=== PATIENT | female | born 1990 | race Caucasian/White ===

== ENCOUNTER 2016-12-17 08:53 | Emergency (ER) | payer MEDICAID ==
[2010-01-27 05:36] VITALS: BMI 36.8
[2016-12-17 10:12] LABS: APPEARANCE SLT CLOUDY (CLEAR); BILIRUBIN NEGATIVE (NEGATIVE); COLOR YELLOW (YELLOW); GLUCOSE NEGATIVE (NEGATIVE); KETONE NEGATIVE (NEGATIVE); LEUKOCYTE ESTERASE NEGATIVE (NEGATIVE); NITRITE POSITIVE (NEGATIVE); PROTEIN NEGATIVE (NEGATIVE); SPECIFIC GRAVITY 1.015 (1.005-1.020); UROBILINOGEN NORMAL (NORMAL)
[2016-12-17 10:13] LABS: BACTERIA MANY /hpf (NONE SEEN); EPITHELIAL CELLS 0-5 /hpf (0-5); RED CELLS - URINE NONE SEEN /hpf (0-5); WHITE CELLS - URINE 0-5 /hpf (0-5)
[2016-12-17 11:35] LABS: BASOPHILS 0.1 % (0-2); EOSINOPHILS 0.7 % (0-7); HEMATOCRIT 36.1 % (36.0-48.0); HEMOGLOBIN 12.3 g/dL (12-16); IMMATURE GRANULOCYTES 0.3 % (0-5); LYMPHOCYTES 17.3 % (15-50); MCH 28.9 pg (26.0-34.0); MCHC 34.1 g/dL (31.0-37.0); MCV 84.7 fL (80.0-100.0); MEAN PLATELET VOLUME 10.2 fL (7.4-10.4); MONOCYTES 7.1 % (2-11); NEUTROPHILS 74.5 % (40-80); PLATELET COUNT 218 10x3/uL (130-400); RBC 4.26 10x6/uL (4.00-5.40); RDW 13.9 % (11.5-14.5); WBC 10.4 10x3/uL (4.8-10.8)
[2016-12-17 12:01] LABS: ALBUMIN 3.3 g/dL (3.4-5.0); ALKALINE PHOSPHATASE 35 U/L (46-116); ALT (SGPT) 19 U/L (10-68); BILIRUBIN - TOTAL 0.26 mg/dL (0.2-1.3); CALC OSMOLALITY 273 mosm/kg (275-300); CALCIUM 9.1 mg/dL (8.5-10.1); CARBON DIOXIDE 25.5 mmol/L (21.0-32.0); CHLORIDE - SERUM 105 mmol/L (98-107); CREATININE - SERUM 0.7 mg/dL (0.6-1.3); GLUCOSE 81 mg/dL (74-106); POTASSIUM - SERUM 3.9 mmol/L (3.5-5.1); PROTEIN - SERUM 6.9 g/dL (6.4-8.2); SODIUM 138 mmol/L (136-145); UREA NITROGEN 10 mg/dL (7-18); eGFR NON AFRICAN AMERICAN > 90 mL/min (90-120)
[2016-12-17 12:27] LABS: HCG - QUANTITATIVE (MATERNAL) 210486 mIU/mL
== END 2016-12-17 16:01 | disposition home or self-care (01) ==
LOC: D.ER 08:53
PROVIDERS: Emergency Medicine; Physician Assistant
DX: O26.891 Other specified pregnancy related conditions, first trimester (principal); Z3A.08 8 weeks gestation of pregnancy; R10.9 Unspecified abdominal pain; R10.32 Left lower quadrant pain; N39.0 Urinary tract infection, site not specified

== ENCOUNTER → 2017-05-29 14:13 | Outpatient (CLI) | payer MEDICAID ==
[2010-01-27 05:36] VITALS: BMI 36.8
[~2017-05-29 14:13] MED LIST: BUSPAR10 MG PO; CYCLOBENZAPRINE5 MG PO; HYDROCODONE-APA1 TAB PO; IBUPROFEN600 MG PO; PRENATAL COMPLE1 TAB PO
[2017-05-29 14:28] LABS: APPEARANCE CLEAR (CLEAR); COLOR YELLOW (YELLOW); GLUCOSE NEGATIVE (NEGATIVE); KETONE NEGATIVE (NEGATIVE); NITRITE NEGATIVE (NEGATIVE); PROTEIN NEGATIVE (NEGATIVE); SPECIFIC GRAVITY 1.015 (1.005-1.020); UROBILINOGEN NORMAL (NORMAL)
[2017-05-29 14:29] LABS: BILIRUBIN NEGATIVE (NEGATIVE)
[2017-05-29 14:31] LABS: WHITE CELLS - URINE 0-5 /hpf (0-5)
[2017-05-29 14:32] LABS: BACTERIA MODERATE /hpf (NONE SEEN); RED CELLS - URINE OCC /hpf (0-5)
[2017-07-22 06:09] VITALS: BMI 37.9
== END | disposition home or self-care (01) ==
LOC: D.LDO 14:13
PROVIDERS: Obstetrics & Gynecology
DX: O26.893 Other specified pregnancy related conditions, third trimester (principal); Z3A.36 36 weeks gestation of pregnancy; R42 Dizziness and giddiness; R11.0 Nausea

== ENCOUNTER → 2017-06-23 12:25 | Outpatient (CLI) | payer MEDICAID ==
[2010-01-27 05:36] VITALS: BMI 36.8
[2017-07-22 06:09] VITALS: BMI 37.9
== END | disposition home or self-care (01) ==
LOC: D.LDO 12:25
DX: O26.899 Other specified pregnancy related conditions, unspecified trimester (principal)

== ENCOUNTER → 2017-07-06 11:50 | Outpatient (CLI) | payer MEDICAID ==
[2010-01-27 05:36] VITALS: BMI 36.8
[2017-07-06 12:47] LABS: APPEARANCE CLEAR (CLEAR); BACTERIA FEW /hpf (NONE SEEN); BILIRUBIN NEGATIVE (NEGATIVE); COLOR YELLOW (YELLOW); EPITHELIAL CELLS 0-5 /hpf (0-5); GLUCOSE NEGATIVE (NEGATIVE); KETONE NEGATIVE (NEGATIVE); NITRITE NEGATIVE (NEGATIVE); PROTEIN NEGATIVE (NEGATIVE); RED CELLS - URINE RARE /hpf (0-5); UROBILINOGEN NORMAL (NORMAL); WHITE CELLS - URINE OCC /hpf (0-5)
[2017-07-22 06:09] VITALS: BMI 37.9
== END | disposition home or self-care (01) ==
LOC: D.LDO 11:50
PROVIDERS: Obstetrics & Gynecology
DX: O26.893 Other specified pregnancy related conditions, third trimester (principal); Z3A.36 36 weeks gestation of pregnancy; R10.9 Unspecified abdominal pain

== ENCOUNTER 2017-07-22 05:39 | Inpatient (IN) | payer MEDICAID ==
[~2017-07-22] VITALS: Ht 157.5 cm; Wt 93.9 kg
[~2017-07-22 05:39] MED LIST changes: -HYDROCODONE-APA1 TAB PO; -IBUPROFEN600 MG PO
[2017-07-22] MEDS ORDERED: BUSPAR10 MG PO (06:07)
[2017-07-22] MEDS ORDERED: PRENATAL COMPLE1 TAB PO (06:07)
[2017-07-22] MEDS ORDERED: CYCLOBENZAPRINE5 MG PO (06:08)
[2017-07-22 06:09] VITALS: BP 114/71; Ht 157.5 cm; Wt 93.9 kg
[2017-07-22 07:01] LABS: APPEARANCE HAZY (CLEAR); BILIRUBIN NEGATIVE (NEGATIVE); COLOR YELLOW (YELLOW); GLUCOSE NEGATIVE (NEGATIVE); KETONE NEGATIVE (NEGATIVE); NITRITE NEGATIVE (NEGATIVE); PROTEIN NEGATIVE (NEGATIVE); SPECIFIC GRAVITY 1.015 (1.005-1.020); UROBILINOGEN NORMAL (NORMAL)
[2017-07-22 07:03] LABS: HEMATOCRIT 35.6 % (36.0-48.0); HEMOGLOBIN 11.8 g/dL (12-16); MCH 26.7 pg (26.0-34.0); MCHC 33.1 g/dL (31.0-37.0); MCV 80.5 fL (80.0-100.0); MEAN PLATELET VOLUME 10.8 fL (7.4-10.4); RBC 4.42 10x6/uL (4.00-5.40); RDW 14.4 % (11.5-14.5); WBC 10.8 10x3/uL (4.8-10.8)
[2017-07-22 07:21] LABS: UDS - AMPHET NEGATIVE QUAL (NEGATIVE); UDS - BARB NEGATIVE QUAL (NEGATIVE); UDS - BENZO NEGATIVE QUAL (NEGATIVE); UDS - COCAINE NEGATIVE QUAL (NEGATIVE); UDS - OPIATE NEGATIVE QUAL (NEGATIVE); UDS - PCP NEGATIVE QUAL (NEGATIVE); UDS - THC NEGATIVE QUAL (NEGATIVE)
--- NOTE | 2017-07-22 08:03 | NUR ---
BABY BORN AT 0755, PLACENTA AT 0756.
--- NOTE | 2017-07-22 09:06 | NUR ---
FUNDUS IS FIRM, MIDLINE AT THE UMBILICUS. PERIPAD IN PLACE. SCANT LOCIA
[2017-07-22 09:27] VITALS: BP 103/60
--- NOTE | 2017-07-22 09:30 | NUR ---
Received pt to room by bed from recovery with bedside report given, VSS. Pt awake and alert, rates pain at 2/10 at this time. Fundus firm upon massage at u/1 with moderate lochia noted without clots. Jenny pad changed. SCD's on per order. IV to left hand infusing via pump per orders. Bikini incision covered with large white bandage that is clean and dry. Sherman cath to bedside drain with 200ml to collection canister. Infant brought to room via crib for . Dilaudid beer cooler started and pt voices her understanding of use. side rails up x 2 with call light in reach and spouse at bedside.
--- NOTE | 2017-07-22 09:50 | NUR ---
fundus firm upon massage at u/1, light bleeding noted without clots. Bonding with infant. small cup of ice and large lemon rosebud soda per pt request.
--- NOTE | 2017-07-22 10:15 | NUR ---
fundus firm with massage at u/1, light to moderate lochia noted, david pads changed. denies needs at this time. call light in reach.
--- NOTE | 2017-07-22 11:30 | NUR ---
tilted to right side per self, fundus firm at u/1. large lemon rampart soda and small cup of ice per request. bonding well with infant. rates pain at 3/10 and denies needs
--- NOTE | 2017-07-22 13:00 | NUR ---
Called to room, pt complaining of increase cramping, rates at 7/10. Pt repositioned to left side and immediate 300ml urine noted to cardoso, fundus firm at u/1 with no clots noted. Orders verified and Tordal given per emar. Pt resting at this time, side rails up x 2 and call light with reach.
--- NOTE | 2017-07-22 14:00 | NUR ---
states that cramping is much better and rates at 2/10. large cup of ice per request. Under pad and towels changed and cardoso care given. Pt able to move self up in bed with little assistance. cardoso with 300ml to collection canister noted. side rails up x 2 with call light in reach. denies any other needs at this time.
[2017-07-22 15:05] LABS: BASOPHILS 0.1 % (0-2); EOSINOPHILS 0.1 % (0-7); HEMATOCRIT 31.8 % (36.0-48.0); HEMOGLOBIN 10.4 g/dL (12-16); IMMATURE GRANULOCYTES 0.6 % (0-5); LYMPHOCYTES 8.2 % (15-50); MCH 26.8 pg (26.0-34.0); MCHC 32.7 g/dL (31.0-37.0); MEAN PLATELET VOLUME 9.6 fL (7.4-10.4); MONOCYTES 6.2 % (2-11); NEUTROPHILS 84.8 % (40-80); RBC 3.88 10x6/uL (4.00-5.40); RDW 14.3 % (11.5-14.5)
[2017-07-22 15:07] LABS: PLATELET COUNT 212 10x3/uL (130-400)
[2017-07-22 16:30] VITALS: BP 120/68
--- NOTE | 2017-07-22 16:45 | NUR ---
Fundus firm at u/1 with light bleeding noted to david pad. Pads changed and pt repositioned to her back. rates pain at 3/10. denies any needs at this time.side rails up x 2 with call light in reach.
--- NOTE | 2017-07-22 18:58 | NUR ---
fundus firm at u/1 with light bleeding. david pad changed. assisted pt in moving up in bed. iv pump cleared with total 1152ml and cardoso emptied with 1100output. Questions asked diet and states understanding that no new orders had been received. NO other needs at this time. Infant in crib at bedside. side rails up x 2 with call light in reach.
--- NOTE | 2017-07-22 19:12 | NUR ---
REPORT REC'D FROM Alana BETANCOURT RN. PT REC'D IN HIGH FOWLERS POSITION CONVERSING AND LAUGHING WITH VISITORS. DENIES NEEDS AT THIS TIME. BED IN LOW POSITION WITH UPPER SIDE RAILS RAISED X2. SCD'S ON BILATERAL CALFS. CL, METAL FILER BUTTON, AND PHONE WITHIN REACH. WILL CONT TO MONITOR AND ASSIST PRN.
--- NOTE | 2017-07-22 20:02 | NUR ---
PT CONTINUES TO CONVERSE WITH VISITORS AT [facility]. RATES PAIN 3-4/10, TORADOL OFFERED PER ORDER. PT DENIES NEED AT THIS TIME. STATES THAT SHE CAN PUSH DELIVERY SALES WORKER BUTTON, BUT DOESN'T LIKE TO USE BUTTON D/T DELIVERY SALES WORKER MAKING HER DROWSY. PT STATES THAT VISITORS WILL BE LEAVING AND REQUESTS FOR ASSESSMENT TO BE DONE AT THAT TIME. BED IN LOW POSITION, UPPER SIDE RAILS RAISED X2. CL, PHONE, AND DELIVERY SALES WORKER BUTTON WITHIN PT REACH. WILL CONT TO MONITOR AND ASSIST PRN.
--- NOTE | 2017-07-22 20:26 | NUR ---
PT CALLS VIA CL AND NOTIFIES RN THAT VISITIORS ARE GONE. REQUESTS TORADOL AT THIS TIME, PAIN 12/23, STATES THAT TORADOL WORKS BETTER FOR HER AND DOESN'T MAKE HER FEEL "LOOPY AND OUT OF IT." TORADOL GIVEN PER REQUEST SIVP . PT MOVING SELF UP IN BED AND TURNING FROM SIDE TO SIDE INDEPENDENTLY WITH RN AT BEDSIDE.
[2017-07-22 20:32] VITALS: BP 108/66
--- NOTE | 2017-07-22 20:32 | NUR ---
SHIFT ASSESSMENT COMPLETED FOLLOWING GIVING TORADOL SIVP. VSS. FUNDUS FIRM, U2 WITH SMALL AMT RUBRA LOCHIA, NO CLOTS. FUNDUS MIDLINE. SCOTT DRAINING CLEAR YELLOW URINE TO BEDSIDE DRAINAGE BAG. 50 CC NOTED IN UROMETER. RESPIRATION CLEAR AND EQUAL BILATERALLY, BOWEL SOUNDS PRESENT AND ACTIVE X4. PT STATES THAT SHE HAS PASSED "A LITTLE" FLATUS AND IS BELCHING. BOARDED GAUZE PRESENT TO LOW TRANSVERSE ABD INCISION. DRIED DRAINAGE NOTED TO DRSG AND MARKED. SCD'S REMOVED, SKIN WDL, SCD'S REPLACED. NO EDEMA NOTED TO BLE AT THIS TIME. PIV INFUSING TO LEFT HAND, NO S/S OF INFILTRATION NOTED. PT USED INCENTIVE SPIROMETER WITH RN AT BEDSIDE, PT USE PROPERLY, COUGH AND DEEP BREATHING ALSO DONE. PT POSITIONED SELF TO LEFT SIDE, RN ASSISTED WITH PLACING PILLOW BEHIND BACK FOR COMFORT AND SUPPORT. SCOTT CARE DONE WITH SCOTT WIPES, PERINUM CLEANSED. TOWELS AND CHUX CHANGED, CLEAN PERIPAD APPLIED. PT REQUEST JELLO AND ICE, PROVIDED PER REQUEST. LINEN AND PILLOWS PROVIDED FOR S/O. DENIES ADDITIONAL NEEDS AT THIS TIME. S/O AT BEDSIDE, SUPPORTIVE AND ATTENTIVE TO PT NEEDS. BED IN LOW POSITION WITH UPPER SIDE RAILS RAISED X2. CL, PHONE, AND PUBLIC RELATIONS SUPERVISOR BUTTON WITHIN REACH. WILL CONT TO MONITOR AND ASSIST PRN.
--- NOTE | 2017-07-22 20:56 | NUR ---
PAIN REASSESSMENT COMPLETE. PAIN 08/25. PT DENIES NEEDS AT THIS TIME. WILL CONTINUE TO MONITOR AND ASSIST PRN.
--- NOTE | 2017-07-22 21:36 | NUR ---
RN TO BEDSIDE FOR ROUNDS. PT INFANT AT THIS TIME. DENIES NEEDS. S/O REMAINS AT BEDSIDE. SCOTT REPOSITIONED TO PROMOTE DRAINAGE. BED IN LOW POSITION WITH UPPER SIDE RAILS RAISED X2. CL, PHONE, AND AIRCONDITIONING DRAFTING OFFICER BUTTON WITHIN REACH. WILL CONT TO MONITOR AND ASSIST PRN.
--- NOTE | 2017-07-22 22:13 | NUR ---
RN TO BEDSIDE. PT REPOSITIONING SELF TO BACK AND HIGH FOWLERS POSITIONS. INCENTIVE SPIROMETER USED BY PT INDEPENDENTLY. PAIN 2/10. DENIES NEEDS AT THIS TIME. WILL CONT TO MONITOR AND ASSIST PRN.
--- NOTE | 2017-07-22 23:33 | NUR ---
called to room by patient, states that she turned in the bed and felt something wet between her legs. states that she thinks her catheter came out. catheter remains in place at this time. pericare done and clean pad placed. pt denies further needs. call constantino and tray table in reach.
--- NOTE | 2017-07-22 23:40 | NUR ---
PATIENT ASSISTED WITH AT THIS TIME. PROPER LATCH NOTED,
[2017-07-23 00:17] VITALS: BP 105/56
--- NOTE | 2017-07-23 00:17 | NUR ---
PT CALLS RN VIA CL. STATES THAT SHE COMPLETED . REQUESTS BE TAKEN TO NBN AND REQUESTS TO SIT UP ON EDGE OF BED. BACK TO NBN. V/S TAKEN AND STABLE. PT POSITIONED TO SITTING ON EDGE OF BED WITH MINIMAL ASSISTANCE. STATES THAT SHE FEELS MUCH BETTER BEING ABLE TO SIT UP, STATES THAT HELPED MY BACK AND SHOULDERS A LOT. PT ASSISTED TO CHANGE INTO BRA. PT GIVEN WARM WET WASH CLOTH AND CLEANSED FACE. RN ASSISTED TO WASH BACK AND BLE. 325 MLS CLEAR YELLOW URINE EMPTIED FROM UROMETER. PT INDEPENDENTLY POSITIONED SELF BACK TO BED AND USED INCENTIVE SPIROMETER X10. COUGHING AND DEEP BREATHING ALSO DONE. FUNDUS FIRM, U2 AND MIDLINE, SMALL AMT RUBRA LOCHIA TO PERIPAD, NO CLOTS NOTED. PERINUM CLEANSED. CHUX CHANGED, CLEAN PERIPADS APPLIED. PT INDEPENDENTLY POSITIONED SELF TO LEFT SIDE LYING POSITION. PAIN 6/10 FOLLOWING ACTIVITY. CLINICAL DATA ASSOCIATE USED BY PT AT THIS TIME. DRSG REMAINS INTACT, NO NEW DRAINAGE NOTED FROM PREVIOUW DRIED DRAINAGE AT BEGINNING OF SHIFT. ICE AND JELLO GIVEN PER REQUEST, DENIES ADDITIONAL NEEDS. BED IN LOW POSITION WITH UPPER SIDE RAILS RAISED X2. CL, PHONE, AND CLINICAL DATA ASSOCIATE BUTTON WITHIN PT REACH. WILL CONT TO MONITOR AND ASSIST PRN.
--- NOTE | 2017-07-23 00:30 | NUR ---
RN TO BEDSIDE PT RESTING QUEITLY AND WATCHING TV. REPORTS THAT SINCE USING COMPENSATION AND BENEFITS MANAGER PAIN IS NOW 2/10 AND THAT SHE IS GOING TO KEEP RESTING. WILL CONT TO MONITOR AND ASSIST PRN.
--- NOTE | 2017-07-23 02:03 | NUR ---
RN TO BEDSIDE FOR ROUNDS. PT IN SEMI-FOWLERS POSITION, LAYING ON RIGHT SIDE RESTING WITH EYES CLOSED. RESPIRATIONS REGULAR AND UNLABORED, NO S/S OF DISTRESS NOTED. S/O RESTING ON COUCH AT BEDSIDE. BED IN LOW POSITION WITH UPPER SIDE RAILS RAISED X2. CL, PHONE, AND BREAD ROOM HAND BUTTON WITHIN REACH. INFANT IN NBN AT THIS TIME. WILL CONT TO MONITOR AND ASSIST PRN.
[2017-07-23 04:14] VITALS: BP 105/69
--- NOTE | 2017-07-23 04:14 | NUR ---
RN TO BEDSIDE FOR ROUNDS. PT JUST COMPLETED . VSS. FUNDUS FIRM, MIDLINE U2 WITH SCANT AMT RUBRA LOCHIA TO PERIPAD. NO CLOTS PRESENT. 325 MLS EMPTIED FROM SCOTT. PERICARE DONE, CHUX AND PERIPADS CHANGED. INCENTIVE SPIROMETER USED. PT POSITIONED INDEPENDENTLY FROM RIGHT SIDE TO LEFT SIDE. NEW ICE PACK GIVEN. CRANBERRY JUICE AND ICE WATER GIVEN PER REQUEST. PAIN 5/10, ABD CRAMPING, TORADOL GIVEN PER REQUEST AND ORDER. DENIES ADDITIONAL NEEDS AT THIS TIME. BED IN LOW POSITION WITH UPPER SIDE RAILS RAISED X2. CL, PHONE, AND DATA ENTRY TECHNICIAN BUTTON WITHIN REACH. WILL CONT TO MONITOR AND ASSIST PRN.
--- NOTE | 2017-07-23 04:45 | NUR ---
PAIN REASSESSMENT COMPLETED. PT CONTINUES TO LAY ON RIGHT SIDE. RESTING QUIETLY WITH EYES CLOSED. RESPIRATIONS REGULAR AND UNLABORED, NO S/S OF DISTRESS NOTED. S/O REMAIN AT BEDSIDE RESTING ON COUCH AT BEDSIDE. BED IN LOW POSITION WITH UPPER SIDE RAILS RAISED X2. CL AND PHONE WITHIN REACH. WILL CONT TO MONITOR AND ASSIST PRN.
[2017-07-23 06:15] LABS: RAPID PLASMA REAGIN Non Reactive (Non Reactive)
[2017-07-23 06:21] LABS: BASOPHILS 0.2 % (0-2); EOSINOPHILS 0.7 % (0-7); HEMATOCRIT 29.6 % (36.0-48.0); HEMOGLOBIN 9.6 g/dL (12-16); IMMATURE GRANULOCYTES 0.4 % (0-5); LYMPHOCYTES 13.7 % (15-50); MCH 26.5 pg (26.0-34.0); MCHC 32.4 g/dL (31.0-37.0); MCV 81.8 fL (80.0-100.0); MEAN PLATELET VOLUME 9.3 fL (7.4-10.4); MONOCYTES 5.4 % (2-11); NEUTROPHILS 79.6 % (40-80); PLATELET COUNT 183 10x3/uL (130-400); RBC 3.62 10x6/uL (4.00-5.40); RDW 14.3 % (11.5-14.5); WBC 11.3 10x3/uL (4.8-10.8)
[2017-07-23 09:45] VITALS: BP 109/63
--- NOTE | 2017-07-23 10:00 | NUR ---
DR CORMIER CALLED AND VERIFIED THAT IV COULD BE SALINE LOCKED AND TYLER D/C. EXPLAINED THAT PT IS ASKING TO GET UP OUT OF BED. NEW ORDERS RECEIVED.
--- NOTE | 2017-07-23 10:15 | NUR ---
Plan of care gone over with pt and she denies any questions. IV saline locked. Sherman cath removed intact with 600ml wasted. Pt able to move self to side of bed and amb to bathroom. Voids 200ml without complaint. david care per self with assistance provided with pads/panties. Bed linen changed at this time. Rates pain at 2/10 and understands that pain med is ordered but not scheduled. Side rails up x 2 with call light in reach.
--- NOTE | 2017-07-23 12:18 | NUR ---
large cup of ice plus dr natarajan per pt request. Given Thank You box at this time. pt denies need for pain med and states she has gotten up to void again. 400ml noted to collection hat in bathroom. denies any other needs at this time.
--- NOTE | 2017-07-23 13:06 | NUR ---
CALLED TO ROOM, ASSISTANCE PROVIDE GETTING OUT OF BED TO BATHROOM. VOIDS 300ML WITHOUT COMPLAINT. MEDS GIVEN CHARTED ON EMAR PER PT COMPLAINT OF PAIN THAT SHE RATES AT 8/10. SPOUSE AND AT BEDSIDE. CALL LIGHT IN REACH AND LIGHTS TURNED OUT PER REQUEST.
--- NOTE | 2017-07-23 15:00 | NUR ---
Called to room, assistance provided to get out of bed. Amb per self to bathroom. Request to take a shower now, shower seat placed in shower and supplies moved to be within easy reach for patient. States understanding of emergency call light and spouse states he will be in room also. Bed linens straightened and pink pad changed. Questions answered about how to wash incision site, pt to call when she is finished so that incision care can be shown.
--- NOTE | 2017-07-23 15:45 | NUR ---
PT PRESSES CALL LIGHT. THIS RN TO ROOM. PT IN SHOWER, REQUESTING HELP WITH DRESSING FROM SHOWER. PT ASSISTED TO DRY AND DRESS. PT AMBULATES TO BED WITHOUT ASSIST. PT REQUESTING PIV REMOVED. LABS REVIEWED, PIV REMOVED NO LONGER INDICATED. IV CATH INTACT, PT TASHIA WELL. NO BLEEDING NOTED, BANDAID APPLIED TO SITE. PT DENIES FURTHER NEEDS AT THIS TIME. SRUx2, CL IN REACH.
[2017-07-23 16:30] VITALS: BP 114/70
--- NOTE | 2017-07-23 16:47 | NUR ---
visiting with friends/family, infant in room at this time. Rates her pain at 4/10 denies pain med at this time stating she will call when she is ready to take something.
--- NOTE | 2017-07-23 17:49 | NUR ---
PT CALLS OUT FOR PAIN MED, RATES PAIN AT 6/10 AT INCISION SITE. MEDS GIVEN CHARTED ON EMAR.
--- NOTE | 2017-07-23 18:45 | NUR ---
PAIN REASSESSMENT CHARTED ON EMAR. LARGE ICE WATER PER REQUEST. DENIES ANY OTHER NEEDS AT THIS TIME.
--- NOTE | 2017-07-23 19:06 | NUR ---
REPORT REC'D FROM Alana BETANCOURT RN. PT REC'D SITTING ON EGDE OF BED CONVERSING WITH VISITIORS. DENIES NEEDS CURRENTLY. REPORTS THAT PAIN IS 2-3/10, DENIES NEED FOR INTERVENTION. BED IN LOW POSITION WITH UPPER SIDE RAILS RAISED X2. CL AND PHONE WITHIN REACH. WILL CONT TO MONITOR AND ASSIST PRN.
--- NOTE | 2017-07-23 19:52 | NUR ---
RN BACK TO BEDSIDE. PT CONTINUING OT CONVERSE WITH VISITORS. DENIES NEEDS. INSTRUCTED TO NOTIFY RN WHEN VISITORS LEAVE FOR SHIFT ASSESSMENT TO BE COMPLETED. VERBALIZES UNDERSTANDING.
--- NOTE | 2017-07-23 20:13 | NUR ---
PT CALLS VIA CL, STATES THAT VISITORS ARE GONE. RN TO BEDSIDE. SHIFT ASSESSMENT COMPLETED. VSS. FUNDUS FIRM U3 AND MIDLINE, SMALL AMT RUBRA LOCHIA, NO CLOTS PRESENT. RESPIRATIONS CLEAR, EQUAL, REGULAR, AND UNLABORED. BOWEL SOUNDS PRESENT AND ACTIVE X4. PT STATES THAT SHE IS PASSING FLATUS AND VOIDING WITHOUT DIFFICULTY. LOWER TRANSVERSE ABD INCISION, WELL APPROXIMATED WITH ISSAC INTACT, NO DRAINAGE PRESENT. PERIPAD REPLACED BETWEEN ABD FOLD AND INCISION. STATES THAT SHE SHOWERED DURING PREVIOUS SHIFT, REFUSES LINEN CHANGE AT THIS TIME. S/O BONDING WITH AT THIS TIME. PT STATES THAT SHE HAS NOT AMBULATED OUTSIDE OF ROOM, ENCOURAGED TO AMBULATE IN [place] ON UNIT. EDUCATED ON S/S OF INFECTIONS/INCISION COMPLICATIONS, REINFORCED CARE OF INCISION FOR D/C, AND INSTRUCTED ON LIFTING RESTRICTIONS. VERBALIZES UNDERSTANDING ADN DENIES QUESTIONS. COUGHING AND DEEP BREATHING DONE BY PT, FOLLOWING COUGH PAIN 7/10, PT REQUESTS JUST MOTRIN AT THIS TIME. ICE WATER GIVEN. DENIES ADDITIONAL NEEDS. S/O AT BEDSIDE SUPPORTIVE AND ATTENTIVE TO PT AND INFANT NEEDS. BED IN LOW POSITION WITH UPPER SIDE RAILS RAISED X2. CL AND PHONE WITHIN REACH.
--- NOTE | 2017-07-23 20:25 | NUR ---
MOTRIN GIVEN PER REQUEST. DENIES ADDITIONAL NEEDS. WILL CONT TO MONITOR AND ASSIST PRN.
--- NOTE | 2017-07-23 21:00 | NUR ---
PAIN REASSESSMENT COMPLETED. PAIN 10/23, DENIES NEED FOR ADDITIONAL INTERVENTION AT THIS TIME. PT ASSISTED UP OOB TO VOID, REPORTS THAT EVEN WHEN SHE SPLINTS ABD STILL FEELS LIKE IT PULLS DOWN ON "EVERYTHING." DISCUSSED USE OF ABD BINDER, VERBALIZES AGREEMENT. T/O REC'D FROM DR. CORMIER FOR ABD BINDER. RN ASSISTED WITH PLACEMENT OF ABD BINDER AND INSTRUCTED PT ON USE. VERBALIZES UNDERSTANDING AND DENIES QUESTIONS. ENCOURAGED PT TO AMBULATE ON UNIT, VERBALIZES UNDERSTANDING AND STATES THAT SHE WILL AMBULATE WHEN GOES BACK TO NBN. WILL CONT TO MONITOR AND ASSIST PRN.
--- NOTE | 2017-07-23 21:27 | NUR ---
PT AMBULATES WITH S/O TO NURSES STATION. STEADY GAIT NOTED. PT REQUESTS ADDITIONAL PAIN MEDICATION. PAIN 6/10 DURING ACTIVITY. PT AMBULATES BACK TO ROOM WITH S/O.
--- NOTE | 2017-07-23 21:34 | NUR ---
NORCO GIVEN PER ORDER AND PT REQUEST. PAIN 01/23, "I'M JUST SORE AND STIFF, AND MY INCISION FEELS LIKE IT IS BURNING." ICE WATER GIVEN. PT POSITIONED INDEPENDENTLY IN BED. DENIES ADDITIONAL NEEDS AT THIS TIME. STATES THAT SHE IS GOING TO TRY TO REST. BED IN LOW POSITION WITH UPPER SIDE RAILS RAISED X2. CL AND PHONE WITHIN REACH. WILL CONT TO MONITOR AND ASSIST PRN.
--- NOTE | 2017-07-23 22:20 | NUR ---
PAIN REASSESSMENT COMPLETED. PT RESTING WITH EYES CLOSED, LAYING ON RIGHT SIDE. RESPIRATIONS REGULAR AND UNLABORED, NO S/S OF DISTRESS NOTED. S/O RESTING ON COUCH AT BEDSIDE. BED IN LOW POSITION WITH UPPER SIDE RAILS RAISED X2. CL AND PHONE WITHIN REACH. WILL CONT TO MONITOR AND ASSIST PRN.
--- NOTE | 2017-07-24 00:16 | NUR ---
RN TO BEDSIDE FOR ROUNDS. PT BREAST FEEDING INFANT AT THIS TIME. DENIES NEEDS. PAIN 2/10, ABD CRAMPING, DENIES NEED FOR INTERVENTION. PT STATES THAT SHE WILL CALL RN WHEN SHE COMPLETES FEEDING INFANT FOR V/S AND FUNDAL CHECK. BED IN LOW POSITION WITH UPPER SIDE RAILS RAISED X2. CL AND PHONE WITHIN REACH. WILL CONT TO MONITOR AND ASSIST PRN.
--- NOTE | 2017-07-24 00:54 | NUR ---
PT CALLS VIA CL. REPORTS THAT SHE IS DONE FEEDING . RN TO BEDSIDE. VSS. FUNDUS REMAINS FIRM, U3 AND MIDLINE, SMALL AMT RUBRA LOCHIA PRESENT, NO CLOTS, PT DENIES CLOTS WITH VOIDS. ICE WATER GIVEN. DENIES PAIN AND ADDITIONAL NEEDS. S/O RESTING ON COUCH AT BEDSIDE. BACK TO NBN PER PT REQUEST. BED IN LOW POSITION WITH UPPER SIDE RAILS RAISED X2. CL AND PHONE WITHIN REACH. WILL CONT TO MONITOR AND ASSIST PRN.
--- NOTE | 2017-07-24 02:06 | NUR ---
RN TO BEDSIDE FOR ROUNDS. PT RESTING QUIETLY WITH EYES CLOSED. RESPIRATIONS REGULAR AND UNLABORED, NO S/S OF DISTRESS NOTED. LAYING ON LEFT SIDE. BED IN LOW POSITION WITH UPPER SIDE RAILS RAISED X2. CL AND PHONE WITHIN REACH. WILL CONT TO MONITOR AND ASSIST PRN.
--- NOTE | 2017-07-24 03:08 | NUR ---
RN TO BEDSIDE WITH FOR FEEDING. ID BANDS MATCHED. INFANT HANDED TO PT. PT REPORTS THAT SHE IS GOING TO BREAST FEED THEN GIVE BOTTLE. DENIES NEEDS AND PAIN AT THIS TIME. BED IN LOW POSITION WITH UPPER SIDE RAILS RAISED X2. CL AND PHONE WITHIN REACH. WILL CONT TO MONITOR AND ASSIST PRN.
--- NOTE | 2017-07-24 03:59 | NUR ---
PT BACK TO BED FROM BATHROOM. PAIN 01/23, REQUEST MOTRIN AND NORCO, ABD CRAMPING AND SORENESS WITH INCISIONAL BURNING AND STINGING. MEDS GIVEN PER REQUEST. PT BOTTLE FEEDING AT THIS TIME. BED IN LOW POSITION WITH UPPER SIDE RAILS RAISED X2. CL AND PHONE WITHIN REACH. WILL CONT TO MONITOR AND ASSIST PRN.
[2017-07-24 04:09] VITALS: BP 137/73
--- NOTE | 2017-07-24 04:09 | NUR ---
PT COMPLETED BOTTLE FEEDING . VSS. FUNDUS REMAINS FIRM, U3 AND MIDLINE, SMALL AMT RUBRA, NO CLOTS PRESENT. ICE WATER GIVEN PER REQUEST. PT REQUESTS BREAST PUMP PRIOR TO NEXT FEEDING TO ATTEMPT TO PUMP. PUMP PROVIDED, AND INSTRUCTED ON PUMP USE, VERBALIZES UNDERSTANDING AND DENIES QUESTIONS. BED IN LOW POSITION WITH UPPER SIDE RAILS RAISED X2. CL AND PHONE WITHIN REACH. WILL CONT TO MONITOR AND ASSIST PRN.
--- NOTE | 2017-07-24 04:44 | NUR ---
PAIN REASSESSMENT COMPLETED. PAIN 09/25. DENIES ADDITIONAL NEEDS AT THIS TIME.
--- NOTE | 2017-07-24 05:11 | NUR ---
PT RINGS CL. RN TO BEDSIDE. PT REQUESTS & RECEIVES BLANKET FOR AND FOR HER. PT REPORTS BEING COLD. TEMP IN ROOM INCREASED TO 70 DEGREES. PT DENIES FURTHER NEEDS.
--- NOTE | 2017-07-24 06:32 | NUR ---
RN TO BEDSIDE FOR ROUNDS. PT BONDING WITH INFANT. REQUESTS SNACK, SANDWICH TRAY GIVEN. DENIES ADDITIONAL NEEDS. S/O BONDING WITH INFANT.
--- NOTE | 2017-07-24 07:05 | NUR ---
REPORT GIVEN TO Brittany ROBLERO RN.
--- NOTE | 2017-07-24 07:30 | NUR ---
DR CORMIER HERE TO SEE PT.
--- NOTE | 2017-07-24 07:54 | OP ---
PATIENT NAME: JULIANN ALVAREZ MEDICAL RECORD: [id number] :90 LOCATION:[facility] ADMISSION DATE:07/22/17 SURGEON: ABDON GANN MD DATE OF OPERATION: 07/22/2017 PREOPERATIVE DIAGNOSES: 1. Term intrauterine at 39 weeks. 2. History of previous section times 2. POSTOPERATIVE DIAGNOSES: 1. Term intrauterine at 39 weeks. 2. History of previous section times 2. PROCEDURE: A repeat low transverse section and lysis of adhesions. SURGEON: Abdon Gann MD ESTIMATED BLOOD LOSS: 1000 cc. INTRAVENOUS FLUIDS: Per anesthesia records. FINDINGS: 1. 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 2. Viable female , Apgars 9 at 1 and 9 at 5. 3. Placenta delivered manually intact, 3-vessel cord noted. 4. Normal adnexa bilaterally. COMPLICATIONS: None apparent. SPECIMENS: Placenta and cord for gases. PROCEDURE IN DETAIL: The patient was taken to the operating room where regional anesthesia was achieved without difficulty. The patient was prepped and draped in normal sterile fashion in the dorsal supine position. SCDs were on and functioning normally. Sherman catheter had been placed and was draining freely. At this point, a repeat Pfannenstiel skin incision was made, extended downward to the underlying subcutaneous fat to level of the fascia, which was then excised in the midline and extended bilaterally using the Murillo scissors. The superior and inferior aspects of the fascial incision were then dissected from the underlying rectus muscle using the Murillo scissors and the Bovie cautery. At this point, careful dissection was made of the lower aspect of the rectus diastasis through the pyramidalis muscle with direct visualization of the bladder. The intraperitoneal space then entered by using a pair of Metzenbaum scissors at the superior aspect of the incision. Careful dissection of the peritoneum was performed. A band of omentum was noted to be adherent to the rectus fascia at the level of previous abdominal incision. This was excised using the Bovie cautery with good hemostasis noted. At this point, a bladder blade was placed into the pelvis. A low transverse incision was made and extended superiorly and inferiorly using the Pelosi method. The bag was ruptured using an Allis clamp. The infant's head was found to be extended and the vacuum was placed on the right occipital region to correct the head flexion, one application of the vacuum with no pop offs, correction to head flexion. Application time approximately 5 seconds, removal of the vacuum, immediately upon delivery of the head. No evidence of trauma. The body was then delivered atraumatically. The infant was bulb suctioned upon delivery. OPERATIVE REPORT [id number] JULIANN ALVAREZ The cord was then clamped times 2, cut, and the was handed to awaiting nursery team. At this point, the placenta was removed manually. The uterus was exteriorized, cleared of all clots and debris, and vigorously massaged until a good uterine tone was noted. The uterine incision was repaired with 0 Vicryl in a running locked fashion times 2 with good hemostasis noted. Posterior cul-de-sac was then thoroughly irrigated and uterus was replaced into the pelvis. The anterior cul-de-sac was then thoroughly irrigated and good hemostasis was noted from the uterine incision. Counts were correct times 2 for needles, sponges, and instruments. The fascia was then repaired with 0 loop PDS times 1. Subcutaneous tissue repaired with 0 plain gut and the skin repaired with sean. TRANSINT:[id number] Voice Confirmation ID: [id number] DOCUMENT ID: [id number] ABDON GANN MD at 0754 CC: [id number] DICTATION DATE: 07/22/17 0839 LEAD WAREHOUSE ASSOCIATE: 07/22/17 1102 ADM IN [facility] [address] [id number]
--- NOTE | 2017-07-24 08:00 | NUR ---
ASSESSMENT DONE- VERBAL RESPONSES APPRO TO QUESTIONS. STATES THAT SHE IS UP AND ABOUT IN ROOM WITHOUT PROBLEMS. VOIDING WITHOUT PROBLEMS. ISSAC INTACT- WITHOUT S/S ON INFECTION. SCANT LOCHIA NOTED ON PAD. PT STATES THAT SHE IS READY TO GO HOME TODAY.
[2017-07-24 08:08] VITALS: BP 116/68
--- NOTE | 2017-07-24 10:56 | NUR ---
SITTING UP IN BED WITH INFANT IN ARMS. WAITING TO BE DISCHARGED. NON-SMOKER, BREAST/BOTTLE FEEDING, SAYS SHE HAD TDAP TWO YEARS AGO AFTER LAST DELIVERY. WILL PREPARE FOR DC HOME.
--- NOTE | 2017-07-24 11:09 | NUR ---
REQUESTED PAIN MEDICATION FOR INTERMITTENT CRAMPING 01/23. DISCUSSED PAIN MANAGEMENT OPTIONS. OPTED FOR MOTRIN AND IF NO RELIEF PLANS NORCO. MOTRIN 600 MG. VERBAL AND WRITTEN INFORMATION GIVEN. VISITORS IN ROOM. IN ROOM.
[2017-07-24] MEDS ORDERED: IBUPROFEN600 MG PO (11:16)
[2017-07-24] MEDS ORDERED: HYDROCODONE-APA1 TAB PO (11:17)
--- NOTE | 2017-07-24 11:40 | NUR ---
DR CORMIER ON L&D. INFORMED PT DESIRES FLU VACCINE BEFORE DC HOME. VERBAL ORDERS RECEIVED.
--- NOTE | 2017-07-24 11:45 | NUR ---
2/10 FEELING BETTER. INSTRUCTED WAITING ON FLU VACCINE AND THEN PLAN DC HOME [facility]. VERBALIZED UNDERSTAND. LAYING IN BED WITH INFANT IN ARMS. VISITORS IN ROOM.
--- NOTE | 2017-07-24 12:24 | NUR ---
PT HAS DECIDED TO WAIT ON FLU VACCINE. NOT GIVEN AT THIS TIME.
--- NOTE | 2017-07-24 12:30 | NUR ---
DC INSTRUCTIONS COMPLETED TO INCLUDE POST OP C/S CARE, PP DEPRESSION, BREAST CARE, BREAST/BOTTLE FEEDING, MEDICATION ADMINISTRATION, S&S INFECTION, FOLLOW-UP, WOUND CARE, COMMUNITY RESOURCES, AND CAR SEAT SAFETY. WRITTEN INFORMATION ALSO GIVEN. VERBALIZED UNDERSTANDING, NO SPECIFIC QUESTIONS. FOB IN ROOM, IN CAR SEAT. WILL DC VIA WHEELCHAIR.
--- NOTE | 2017-07-24 12:35 | NUR ---
to auto via w/c with
--- NOTE | 2017-08-28 06:53 | DS ---
PATIENT:JULIANN ALVAREZ :89 MEDICAL RECORD: [id number] DISCHARGE SUMMARY ADMISSION DATE: 07/22/17 DISCHARGE DATE: 07/24/17 The patient was admitted on 07/22/2017. HISTORY: A 27-year-old at 39 weeks and 6 days, admitted for a repeat section. The patient was noted to be O positive, group B strep negative, and rubella immune. PAST MEDICAL HISTORY: Significant for GERD. PAST SURGICAL HISTORY: Significant for times 2. ALLERGIES: Reported no allergies. MEDICATIONS: Include BuSpar, vitamins, and Flexeril. FAMILY HISTORY: The patient reported a family history significant for parents and a sibling, both with diabetes. SOCIAL HISTORY: Positive for marijuana. PHYSICAL EXAMINATION: VITAL SIGNS: On initial assessment, vital signs were found to be stable. The patient was afebrile and normotensive. LUNGS: Clear to auscultation. CARDIOVASCULAR: Regular rate and rhythm. PELVIC: Uterus was appropriately sized and nontender. EXTREMITIES: Free of Homans sign. heart rate was in the 140s with moderate variability with category 1 tracing. ASSESSMENT AND PLAN: At that time was term intrauterine at 39 weeks with a history of section times 2, positive for marijuana. Plan for repeat . Risks and benefits were explained. The patient voiced understanding and consented. Operative report is as dictated. The patient did well overnight on postop day #0, tolerating Dilaudid PUMP HOUSE ENGINEER, IV Toradol, IV fluids, and clear liquid diet. Sherman catheter was in place and draining freely. Urine output was adequate. SCDs are on and functioning normally. On the morning of postop day #1, the patient continued to do well. Hemoglobin was 10.4. Vital signs were stable. The patient was afebrile. Incision was clean, dry, and intact. Uterus infraumbilical and nontender and appropriately tender. The patient was advanced to p.o. pain meds and general diet. At that time, the Sherman catheter was discontinued and ambulation was begun. On the morning of postop day #2, the patient continued to do well. Vital signs are stable. The patient was afebrile. Incision was clean, dry and intact. Uterus was infraumbilical and nontender. The patient reported only minimal lochia. Hemoglobin was found to be stable. The patient was tolerating general diet as noted. The patient was discharged home with instructions to follow up the next week for DISCHARGE SUMMARY REPORT [id number] JULIANN ALVAREZ removal of the sean. TRANSINT:[id number] Voice Confirmation ID: [id number] DOCUMENT ID: [id number] PK CORMIER MD at [id number] CC: [id number] DICTATION DATE: 08/16/17 1359 SCHOOL CUSTODIAN: 08/17/17 0416 DIS IN 07/24/[address] [address]
== END 2017-07-24 12:35 | disposition home or self-care (01) | DRG 765 ==
LOC: D.LD 05:39
PROVIDERS: ADMIT Obstetrics & Gynecology
PROC: 10D00Z1 Extraction of Products of Conception, Low, Open Approach (ICD-10-PCS; principal; 2017-07-22 07:30)
DX: O34.219 Maternal care for unspecified type scar from previous cesarean delivery (principal); O99.324 Drug use complicating childbirth; Z3A.39 39 weeks gestation of pregnancy; Z37.0 Single live birth; Z87.891 Personal history of nicotine dependence; F12.90 Cannabis use, unspecified, uncomplicated

== ENCOUNTER → 2018-12-21 10:46 | Outpatient (CLI) | payer MEDICAID ==
[2017-07-22 06:09] VITALS: BMI 37.9
[~2018-12-21 10:46] MED LIST changes: +HYDROCODONE-APA1 TAB PO; +IBUPROFEN600 MG PO
== END | disposition home or self-care (01) ==
LOC: D.LDO 10:46
PROVIDERS: ATTEND Obstetrics & Gynecology
DX: O26.899 Other specified pregnancy related conditions, unspecified trimester (principal); Z3A.00 Weeks of gestation of pregnancy not specified

== ENCOUNTER → 2019-01-04 13:50 | Outpatient (CLI) | payer MEDICAID ==
[2017-07-22 06:09] VITALS: BMI 37.9
== END | disposition home or self-care (01) ==
LOC: D.LDO 13:50
PROVIDERS: ATTEND Obstetrics & Gynecology
DX: O36.5930 Maternal care for other known or suspected poor fetal growth, third trimester, not applicable or unspecified (principal); Z3A.33 33 weeks gestation of pregnancy

== ENCOUNTER → 2019-01-23 12:33 | Outpatient (CLI) | payer MEDICAID ==
[2017-07-22 06:09] VITALS: BMI 37.9
[~2019-01-23 12:33] MED LIST changes: +HYDROCODON-ACE1 EA10 PO; +MACROBID100 MG PO; +MIRALAX17 GM PO; +MOTRIN600 MG PEG
[2019-01-23 13:50] LABS: BASOPHILS 0 % (0-2); EOSINOPHILS 0.7 % (0-7); HEMOGLOBIN 9.1 g/dL (12-16); IMMATURE GRANULOCYTES 0.5 % (0-5); LYMPHOCYTES 12.4 % (15-50); MCH 24.3 pg (26.0-34.0); MCHC 32.5 g/dL (31.0-37.0); MCV 74.9 fL (80.0-100.0); MEAN PLATELET VOLUME 9.6 fL (7.4-10.4); MONOCYTES 7.5 % (2-11); NEUTROPHILS 78.9 % (40-80); RBC 3.74 10x6/uL (4.00-5.40); RDW 14.2 % (11.5-14.5); WBC 9.5 10x3/uL (4.8-10.8)
[2019-01-23 13:52] LABS: PLATELET COUNT 232 10x3/uL (130-400)
[2019-01-23 14:13] LABS: APPEARANCE HAZY (CLEAR); BACTERIA MANY /hpf (NONE SEEN); BILIRUBIN NEGATIVE (NEGATIVE); COLOR YELLOW (YELLOW); EPITHELIAL CELLS 0-5 /hpf (0-5); GLUCOSE NEGATIVE (NEGATIVE); KETONE MODERATE mg/dL (NEGATIVE); MUCUS <1+ /lpf (NONE SEEN); NITRITE POSITIVE (NEGATIVE); PROTEIN NEGATIVE (NEGATIVE); SPECIFIC GRAVITY 1.015 (1.005-1.020); UROBILINOGEN NORMAL (NORMAL); WHITE CELLS - URINE 0-5 /hpf (0-5)
== END | disposition home or self-care (01) ==
LOC: D.LDO 12:33
PROVIDERS: ATTEND Obstetrics & Gynecology
DX: O26.893 Other specified pregnancy related conditions, third trimester (principal); Z3A.35 35 weeks gestation of pregnancy; R10.31 Right lower quadrant pain

== ENCOUNTER 2019-01-27 22:14 | Outpatient (CLI) | payer MEDICAID ==
[2017-07-22 06:09] VITALS: BMI 37.9
[~2019-01-27 22:14] MED LIST changes: -HYDROCODON-ACE1 EA10 PO; -MACROBID100 MG PO; -MIRALAX17 GM PO; -MOTRIN600 MG PEG
[2019-01-27] MEDS ORDERED: MACROBID100 MG PO (22:31)
[2019-01-27] MEDS ORDERED: MIRALAX17 GM PO (22:32)
== END 2019-01-28 01:24 | disposition home or self-care (01) ==
LOC: D.LDO 22:14 → D.LD 22:56 → D.LDO 01-28 01:24
PROVIDERS: ATTEND Obstetrics & Gynecology
DX: O26.893 Other specified pregnancy related conditions, third trimester (principal); Z3A.36 36 weeks gestation of pregnancy

== ENCOUNTER 2019-02-08 09:40 | Inpatient (IN) | payer MEDICAID ==
[2019-02-08] VITALS (15 sets, daily range): BP systolic 96–119; BP diastolic 45–64; BMI 36.3
[~2019-02-08 09:40] MED LIST changes: +MACROBID100 MG PO; +MIRALAX17 GM PO
[2019-02-08 13:59] LABS: HEMATOCRIT 31.7 % (36.0-48.0); HEMOGLOBIN 10.2 g/dL (12-16); MCH 23.8 pg (26.0-34.0); MCHC 32.2 g/dL (31.0-37.0); MCV 73.9 fL (80.0-100.0); MEAN PLATELET VOLUME 9.6 fL (7.4-10.4); RBC 4.29 10x6/uL (4.00-5.40); RDW 13.8 % (11.5-14.5); WBC 12.5 10x3/uL (4.8-10.8)
--- NOTE | 2019-02-08 16:31 | NUR ---
FUNDUS IS MINDLINE UMBILICUS AND FIRM. THERE IS SCANT RUBRA BLEEDING ON JUSTIN PAD.
--- NOTE | 2019-02-08 16:42 | NUR ---
TRANSFERING CARE TO ANTHONY CONROY RN IN STABLE CONDITION
--- NOTE | 2019-02-08 16:43 | NUR ---
CARE ASSUMED FROM RAFAEL FERRARA RN
--- NOTE | 2019-02-08 17:00 | NUR ---
TO ROOM 1219 VIA BED FROM RR. AWAKE AND ALERT. VERBAL RESPONSES APPRO TO QUESTIONS. ABLE TO MOVE RT LEG BUT LT LEG IS STILL NUMB. IV- RT WRIST- UP 1000CC NS WITH PITOCIN 20 UNITS AT 125CC/HR. SALINE LOCK IN LT HAND. ABD SOFT. ABD DRESSING - BIKINI LINE- CD&I. SCOTT CATH INTACT WITH CLEAR YELLOW URINE. ICE CAP PLACED ON ABD. SCD'S ON.
--- NOTE | 2019-02-08 17:05 | NUR ---
MOD LOCHIA ON PAD- PERINEAL AREA CLEANSED AND NEW PAD PLACED. FUNDUS UU.
--- NOTE | 2019-02-08 17:11 | NUR ---
DILAUDID GRAY TENDER SETUP- 0.2 MG Q10MIN PRN. PT INSTRUCTED ON USE. STATES UNDERSTANDING AND BUTTON PLACED WITHIN REACH.
--- NOTE | 2019-02-08 17:35 | NUR ---
TALKING WITH VISITORS.SMALL TO MOD LOCHIA ON PAD. ABLE TO MOVE LEGS MORE NOW.
--- NOTE | 2019-02-08 18:29 | NUR ---
JUSTIN PAD CHANGED AT THIS TIME- NO INCREASE IN LOCHIA. SMALL CLOT X 1 NOTED THOUGH. PERINEAL AREA CLEANSED. INFANT IN ARMS. FAMILY AT BEDSIDE.
[2019-02-08 18:44] LABS: UDS - AMPHET NEGATIVE QUAL (NEGATIVE); UDS - BARB NEGATIVE QUAL (NEGATIVE); UDS - BENZO NEGATIVE QUAL (NEGATIVE); UDS - COCAINE NEGATIVE QUAL (NEGATIVE); UDS - OPIATE NEGATIVE QUAL (NEGATIVE); UDS - PCP NEGATIVE QUAL (NEGATIVE); UDS - THC NEGATIVE QUAL (NEGATIVE)
--- NOTE | 2019-02-08 19:08 | NUR ---
BEDSIDE REPORT REC'D FROM Brittany ROBLERO RN. PT REC'D IN SEMI FOWLERS POSITION BREAST FEEDING . LIFE SKILLS SPECIALIST CURRENTLY INFUSING, PAIN 2-3/10, ABD SORENESS AND CRAMPING. VSS. DENIES NEED FOR ADDITIONAL INTERVENTION. FUNDUS FIRM, MIDLINE AND U2 WITH SCANT RUBRA LOCHIA. SCOTT DRAINING CLEAR LIGHT YELLOW URINE TO BEDSIDE DRAINAGE. SCD'S ON BLE. DENIES NEEDS AT THIS TIME. BED IN LOW POSITION WITH UPPER SIDE RAILS RAISED X2. CALL LIGHT, LIFE SKILLS SPECIALIST BUTTON, AND PHONE WITHIN REACH. FAMILY MEMBERS AT BEDSIDE CONVERSING WITH PT. WILL CONTINUE TO MONITOR AND ASSIST PRN.
--- NOTE | 2019-02-08 20:16 | NUR ---
V/S REMAIN STABLE. BONDING WITH AND CONVERSING WITH VISITORS. FUNDUS REMAINS FIRM, MIDLINE AND U2 WITH SMALL RUBRA LOCHIA, NO CLOTS NOTED. REQUEST ASSESSMENT BE COMPLETED UPON VISITORS LEAVING. DENIES PAIN AND NEEDS AT THIS TIME. SCD'S REMAIN ON BLE. BED IN LOW POSITION WITH UPPER SIDE RAILS RAISED X2. CALL LIGHT AND PHONE WITHIN REACH. WILL CONTINUE TO MONITOR.
--- NOTE | 2019-02-08 20:49 | NUR ---
SHIFT ASSESSMENT COMPLETED PER FLOWSHEET. VSS. PAIN 2/10 ABD SORENESS AND CRAMPING AT REST WITH INCISIONAL BURNING AND STINGING, 4/10 FOLLOWING REPOSITIONING TO LEFT SIDE FROM BACK AND FUNDAL CHECK. FUNDUS REMAINS FIRM MIDLINE AND U2 WITH SMALL RUBRA LOCHIA, NO CLOTS PRESENT. BOWEL SOUNDS PRESENT AND ACTIVE X4 QUADRANTS. DENIES PASSING FLATUS. 350 MLS CLEAR LIGHT YELLOW URINE PRESENT IN UROMETER. DRSG CLEAN DRY AND INTACT TO LOWER TRANSVERSE ABD INCISION, NO DRAINAGE NOTED. TOWELS CHUX AND PERIPADS CHANGED. PERICARE AND SCOTT CARE DONE. ICE PACK PROVIDED. JELLO, POPISCLE, CHICKEN BROTH, AND ICE WATER PROVIDED. DENIES ADDITIONAL NEEDS. BED IN LOW POSITION WITH UPPER SIDE RAILS RAISED X2. CALL LIGHT AND PHONE WITHIN REACH. WILL CONTINUE TO MONITOR AND ASSIST PRN. PLAN OF CARE DISCUSSED, VERBALIZES UNDERSTANDING AND DENIES QUESTIONS. INCENTIVE SPIROMENTER USED X3 WITH GOOD EFFORT, COUGH AND DEEP BREATHING DONE WITH GOOD EFFORT.
--- NOTE | 2019-02-08 21:45 | NUR ---
VSS. FUNDUS REMAINS FIRM, MIDLINE AND U2 WITH SMALL AMT RUBRA LOCHIA TO PERIPAD, NO CLOTS NOTED. REPOSITIONED INDEPENDENTLY TO BACK. INCENTIVE SPIROMETER DONE X6 AND COUGH AND DEEP BREATHING DONE WITH GOOD EFFORT. DENIES NEEDS. PAIN 1-2/10, DENIES NEED FOR ADDITIONAL INTERVENTION. BED IN LOW POSITION WITH UPPER SIDE RAILS RAISED X2. CALL LIGHT AND PHONE WITHIN REACH. WILL CONTINUE TO MONITOR AND ASSIST PRN. I&O DONE.
[2019-02-08 22:23] LABS: BASOPHILS 0.1 % (0-2); EOSINOPHILS 0.1 % (0-7); HEMATOCRIT 29.5 % (36.0-48.0); HEMOGLOBIN 9.4 g/dL (12-16); IMMATURE GRANULOCYTES 0.4 % (0-5); LYMPHOCYTES 9.7 % (15-50); MCH 23.7 pg (26.0-34.0); MCHC 31.9 g/dL (31.0-37.0); MCV 74.5 fL (80.0-100.0); MEAN PLATELET VOLUME 9.4 fL (7.4-10.4); MONOCYTES 4.3 % (2-11); NEUTROPHILS 85.4 % (40-80); PLATELET COUNT 187 10x3/uL (130-400); RBC 3.96 10x6/uL (4.00-5.40); RDW 15.1 % (11.5-14.5); WBC 16.2 10x3/uL (4.8-10.8)
--- NOTE | 2019-02-08 22:40 | NUR ---
V/S REMAIN STABLE. FUNDUS FIRM, MIDLINE AND U2 WITH SCANT RUBRA LOCHIA, NO CLOTS NOTED. PERICARE DONE, PERIPADS CHANGED. ICE PACK PROVIDED. DENIES ADDITIONAL NEEDS. BED IN LOW POSITION WITH UPPER SIDE RAILS RAISED X2. CALL LIGHT AND PHONE WITHIN REACH. WILL CONTINUE TO MONITOR AND ASSIST PRN.
--- NOTE | 2019-02-08 23:01 | NUR ---
NEW BAG NS WITH 20 UNIT PIT HUNG. DENIES PAIN. JELLO AND ICE WATER PROVIDED. HANDED TO MOM FOR FEEDING. DENIES ADDITIONAL NEEDS. SCD'S ON BLE. REPOSITIONED SELF FROM RIGHT SIDE TO BACK. INCENTIVE SPIROMETER USED X6 WITH GOOD EFFORT. COUGH AND DEEP BREATHING DONE WITH GOOD EFFORT. BED IN LOW POSITION WITH UPPER SIDE RAILS RAISED X2. CALL LIGHT AND PHONE WITHIN REACH. WILL CONTINUE TO MONITOR AND ASSIST PRN.
--- NOTE | 2019-02-08 23:50 | NUR ---
INFANT. REQUEST V/S BE CHECKED WHEN SHE COMPLETES . SCOTT NOTED TO BE LEAKING ON FLOOR. CLAMP CLOSED AND FLOOR MOPPED. SODA PROVIDED PER PT REQUEST. DENIES ADDITIONAL NEEDS. STATES THAT SHE WILL CALL RN WHEN SHE COMPLETES BREAST FEEDING. SIGNIFICANT OTHER AT BEDSIDE, SUPPORTIVE AND ATTENTIVE TO PT AND INFANT NEEDS.
[2019-02-09 00:20] VITALS: BP 96/58
--- NOTE | 2019-02-09 00:20 | NUR ---
REPORTS THAT SHE COMPLETED . VSS. FUNDUS FIRM, MIDLINE AND U2 WITH SCANT RUBRA LOCHIA, NO CLOTS NOTED. PERICARE AND SCOTT CARE DONE. CHUX, TOWELS AND PERIPADS CHANGED. SCD'S REMAIN ON BLE. 700 MLS CLEAR LIGHT YELLOW URINE EMPTIED FROM SCOTT. ICE WATER AND ICE PACK PROVIDED. REPOSITIONED SELF FROM BACK TO RIGHT SIDE. PILLOWS PLACED BEHIND BACK AND BETWEEN KNEES. INCENTIVE SPIROMETER USED X8 WITH GOOD EFFORT AND COUGH AND DEEP BREATHING DONE WITH GOOD EFFORT. INFANT TO NBN PER PT REQUEST. BED IN LOW POSITION WITH UPPER SIDE RAILS RAISED X2. CALL LIGHT AND PHONE WITHIN REACH. WILL CONTINUE TO MONITOR AND ASSIST PRN.
--- NOTE | 2019-02-09 02:04 | NUR ---
RESTING WITH EYES CLOSED. RESPIRATIONS REGULAR AND UNLABORED, NO S/S OF DISTRESS NOTED. IV INTAKE DONE. SCD'S ON BLE. WILL CONTINUE TO MONITOR AND ASSIST PRN. BED IN LOW POSITION WITH UPPER SIDE RAILS RAISED X2. CALL LIGHT AND PHONE WITHIN REACH.
--- NOTE | 2019-02-09 02:17 | NUR ---
IT SYSTEMS ANALYST EMPTY. SYRINGE CHANGED, WITNESSED WITH Brittany KEARNEY RN. PAIN 5/10, ABD SORENESS AND CRAMPING WITH INCISIONAL BURNING AND STINGING. STATES THAT SHE JUST TURNED TO LEFT SIDE AND PAIN IS INCREASED BECAUSE OF THAT. DENIES NEEDS. BED IN LOW POSITION WITH UPPER SIDE RAILS RAISED X2. CALL LIGHT AND PHONE WITHIN REACH.
--- NOTE | 2019-02-09 02:56 | NUR ---
PAIN REASSESSMENT COMPLETED. PT REMAINS LAYING ON LEFT SIDE, RESTING WITH EYES CLOSED. RESPIRATIONS REGULAR AND UNLABORED, NO S/S OF DISTRESS NOTED. BED IN LOW POSITION WITH UPPER SIDE RAILS RAISED X2. CALL LIGHT AND PHONE WITHIN REACH. SCD'S ON BLE. WILL CONTINUE TO MONITOR AND ASSIST PRN.
[2019-02-09 04:30] VITALS: BP 96/57
--- NOTE | 2019-02-09 04:30 | NUR ---
VSS. FUNDUS FIRM, MIDLINE AND U2 WITH SCANT RUBRA LOCHIA, NO CLOTS PRESENT. PERICARE AND SCOTT CARE DONE. CHUX AND PERIPADS CHANGED. 600 MLS CLEAR LIGHT YELLOW URINE EMPTIED FROM UROMETER. INCENTIVE SPIROMETER DONE X4 WITH GOOD EFFORT. COUGH AND DEEP BREATHING DONE. REPOSITIONED INDEPENDENTLY FROM BACK TO LEFT SIDE. ICE PACK AND ICE WATER PROVIDED. DENIES ADDITIONAL NEEDS. BED IN LOW POSITION WITH UPPER SIDE RAILS RAISED X2. CALL LIGHT AND PHONE WITHIN REACH. WILL CONTINUE TO MONITOR AND ASSIST PRN.
[2019-02-09 05:53] LABS: BASOPHILS 0.1 % (0-2); EOSINOPHILS 0.6 % (0-7); HEMATOCRIT 28.6 % (36.0-48.0); HEMOGLOBIN 9.5 g/dL (12-16); IMMATURE GRANULOCYTES 0.4 % (0-5); LYMPHOCYTES 9.6 % (15-50); MCH 24.7 pg (26.0-34.0); MCHC 33.2 g/dL (31.0-37.0); MCV 74.3 fL (80.0-100.0); MEAN PLATELET VOLUME 9.9 fL (7.4-10.4); MONOCYTES 5.7 % (2-11); NEUTROPHILS 83.6 % (40-80); PLATELET COUNT 187 10x3/uL (130-400); RBC 3.85 10x6/uL (4.00-5.40); RDW 15.3 % (11.5-14.5); WBC 16.2 10x3/uL (4.8-10.8)
--- NOTE | 2019-02-09 06:08 | NUR ---
INFANT AT THIS TIME. DENIES NEEDS. SIGNIFICANT OTHER RESTING AT BEDSIDE. SCD'S REMAIN ON BLE. STATES THAT SHE USED INCENTIVE SPIROMETER X3 PRIOR TO STARTING . PAIN 10/23, REPOSITIONING TO BREASTFEED. BED IN LOW POSITION WITH UPPER SIDE RAILS RAISED X2. CALL LIGHT AND PHONE WITHIN REACH. WILL CONTINUE TO MONITOR AND ASSIST PRN.
[2019-02-09 07:16] VITALS: BP 94/49
[2019-02-09 07:18] LABS: RAPID PLASMA REAGIN Non Reactive (Non Reactive)
--- NOTE | 2019-02-09 07:29 | NUR ---
AWAKE- SITTING UP IN BED HOLDING INFANT. PETE AT WILL. VERBAL RESPONSES APPRO TO QUESTIONS. FUNDUS U1/FIRM. SCANT LOCHIA ON PAD-NO CLOTS. NO REQUESTS.
[2019-02-09 08:52] VITALS: BMI 36.2
--- NOTE | 2019-02-09 10:19 | NUR ---
IV CHANGED TO SALINE LOCK- FLUSHED WITH NS. SCOTT CATH REMOVED POST BULB DEFLATED WITH 1200CC URINE IN CONTAINER.
--- NOTE | 2019-02-09 11:16 | NUR ---
UP TO BATHROOM- VOIDED 400CC. LINENS CHANGED. TOLERATED WELL. REQUESTING PAIN MEDICATION- RATES PAIN A 7 ON SCALE OF 0-10.
[2019-02-09 12:15] VITALS: BP 105/63
--- NOTE | 2019-02-09 12:19 | NUR ---
STATES THAT PAIN IS BETTER- RATES PAIN A 3-4 NOW. TALKING WITH VISITORS. DENIES NEEDS.
--- NOTE | 2019-02-09 13:38 | NUR ---
UP TO BATHROOM TO VOID AND TO SHOWER PER REQUEST.
--- NOTE | 2019-02-09 13:53 | NUR ---
NOTED SOME MOD LOCHIA WHILE STANDING TO DRY OFF. PADS PLACED AND RETURNED TO BED. ABD A BIT ROUNDED BUT SOFT. PT STATES NOT PASSED GAS YET. ENCOURAGED TO LAY ON SIDE. CALL LIGHT IN REACH.
--- NOTE | 2019-02-09 14:50 | NUR ---
UP TO BATHROOM- VOIDED 350CC. SM TO MOD LOCHIA NOTED ON PAD. STATES PAIN IS 4-5 AFTER GETTING UP AND REQUESTS PAIN MEDICATION.
[2019-02-09 16:30] VITALS: BP 113/68
--- NOTE | 2019-02-09 16:35 | NUR ---
STATES THAT PAIN IS BETTER. DENIES NEEDS.
--- NOTE | 2019-02-09 17:00 | NUR ---
VOIDED 750CC INTO CONTAINTER.
--- NOTE | 2019-02-09 17:54 | NUR ---
RATES PAIN A 3 ON SCALE OF 0-10. STATES WOULD LIKE SOME IBUPROFEN AT THIS TIME.
--- NOTE | 2019-02-09 18:34 | NUR ---
BABY IN ARMS. STATES IS FEELING OK. DENIES NEEDS.
--- NOTE | 2019-02-09 19:10 | NUR ---
PM ROUNDS MADE, PT VISITING WITH FAMILY AND FRIENDS, IN OPEN CRIB CART AT BEDSIDE, INFORMED PT THAT I WILL BE BACK SHORTLY TO DO ASSESSMENT, PT VERBALIZES UNDERSTANDING, DENIES NEEDS AT THIS TIME
[2019-02-09 20:00] VITALS: BP 104/72
--- NOTE | 2019-02-09 20:00 | NUR ---
ASSESSMENT PER FLOW SHEET, VS OBTAINED, SALINE LOCK IN RIGHT WRIST INTACT WITH NO REDNESS OR EDEMA, PT REPORTS THAT SHE NEEDS TO VOID AT THIS TIME, REPORTS LITE-MOD BLEEDING WITH NO CLOTS, PT UP TO BR WITH ASSISTANCE, VOIDED 600 MLS OF CLEAR YELLOW URINE, ASSISTED PT WITH JUSTIN PAD AND PANTIES, PT UP OFF OF COMMODE, PT WAS COMING BACK TO BED, PT REPORTS "LEAKING", PT BACK TO COMMODE, JUSTIN PAD CHANGED, PT BACK TO BED, FF, ML, U/2, NO BLEEDING NOTED WITH FUNDAL CHECK, BIKINI INC WITH ISSAC CDI WITH NO DRAINAGE NOTED, JUSTIN PAD OVER INC FOR COMFORT AND MOISTURE CONTROL, PT REPORTS "A LITTLE" FLATUS, NO BM AND VOIDED WITH NO DIFFICULTY, PT ENC TO EMPTY BLADDER EVERY 2 HOURS, TEACHING DONE REGARDING POST HEMORRHAGE, PT VERBALIZES UNDERSTANDING, FRESH ICE PACK TO ABD, PT ENC TO AMB, PT C/O INC PAIN, INFORMED PT THAT I WILL ADM PAIN MED, PT REQUESTED AND SERVED FRESH H20, PT'S GRANDMOTHER AND OTHER CHILD AT BEDSIDE
--- NOTE | 2019-02-09 20:27 | NUR ---
ADM DE LA CRUZ PER MD ORDERS, SEE EMAR, PT DENIES FURTHER NEEDS
--- NOTE | 2019-02-09 21:20 | NUR ---
PT HOLDING INFANT, RATES PAIN 09/25, PT REPORTS AMB IN ROOM, PT STATES "I HAD A LITTLE BLEEDING, NO MUCH, BUT I WENT AHEAD AND TOOK OFF THAT ONE PAD SINCE YOU HAD PLACED 2 OF THEM", INFORMED PT THAT I WILL HAVE ANOTHER NURSE COME AND EVALUATE BLEEDING ALSO, PT VERBALIZES UNDERSTANDING
--- NOTE | 2019-02-09 21:32 | NUR ---
GIANNI IGLESIAS, DOLORES TO ROOM, REPORTS FF, ML, U/2, NO VAG BLEEDING WITH FUNDAL MASSAGE, WILL CONTINUE TO MONITOR
--- NOTE | 2019-02-09 22:06 | NUR ---
PT FREIGHT CLERK LIGHT, ASSISTED PT'S GRANDMOTHER WITH RECLINER INTO BED, MADE UP THE RECLINER FOR HER, PT JUST FINISHED , FLUSHED SALINE LOCK WITH NO DIFFICULTY, PT REQUESTED AND SERVED ORANGE JELLO, PT DENIES FURTHER NEEDS
[2019-02-10] VITALS (12 sets, daily range): BP systolic 96–126; BP diastolic 43–69
--- NOTE | 2019-02-10 00:32 | NUR ---
PT AWAKE, REPORTS THAT SHE JUST FINISHED , AND ALSO HAD GOTTEN UP TO VOID, REPORTS SCANT BLEEDING WITH NO CLOTS, RATES INC PAIN AND CRAMPING, ADM NORCO AND MOTRIN PER MD ORDERS, SEE EMAR, PT DENIES FURTHER NEEDS, PT'S GRANDMA AT BEDSIDE
--- NOTE | 2019-02-10 01:00 | NUR ---
REPORT TO GIANNI IGLESIAS RN
--- NOTE | 2019-02-10 01:15 | NUR ---
ROUNDS MADE. PAIN REASSESSMENT COMPLETE. RESTING QUIETLY LAYING ON LEFT SIDE. RESPIRATIONS REGULAR AND UNLABORED, NO S/S OF DISTRESS NOTED. INFANT RESTING QUIETLY IN OPEN CRIB AT BEDSIDE. BED IN LOW POSITION WITH UPPER SIDE RAILS RAISED X2. CALL LIGHT AND PHONE WITHIN REACH. WILL CONTINUE TO MONITOR AND ASSIST PRN.
--- NOTE | 2019-02-10 03:32 | NUR ---
LAYING ON RIGHT SIDE WATCHING TV. PAIN 2/10, DENIES NEED FOR INTERVENTION. PUDDING AND PETER CRACKERS PROVIDED PER PT REQUEST. DENIES ADDITIONAL NEEDS. BED IN LOW POSITION WITH UPPER SIDE RIALS RAISED X2. CALL LIGHT AND PHONE WITHIN REACH. WILL CONTINUE MONITOR AND ASSIST PRN. FAMILY RESTING AT BEDSIDE.
--- NOTE | 2019-02-10 04:16 | NUR ---
VSS. FUNDUS REMAINS FIRM MIDLINE AND U2 WITH SCANT RUBRA LOCHIA, NO CLOTS PRESENT. REPORTS THAT SHE JUST VOIDED AND CHANGED PERIPADS, SCANT LOCHIA NOTED TO PREVIOUS PERIPAD, NO CLOTS AND PT DENIES PASSING CLOTS. INFANT HANDED TO PT FOR . DENIES NEEDS. PAIN 2-3/10, DENIES NEED FOR INTERVENTION AT THIS TIME. SCD'S ON BLE. BED IN LOW POSITION WITH UPPER SIDE RAILS RAISED X2. CALL LIGHT AND PHONE WITHIN REACH. WILL CONTINUE TO MONITOR AND ASSIST PRN.
--- NOTE | 2019-02-10 05:22 | NUR ---
BACK TO BED FOLLOWING VOIDING. SCANT RUBRA LOCHIA NOTED TO PERIPAD, NO CLOTS PRESENT. C/O PAIN 5/10, ABD SORENESS WITH INCISIONAL BURNING AND STINGING. REQUESTS NORCO, GIVEN PER ORDER AND PT REQUEST. RT WRIST PIV FLUSHED WITHOUT DIFFICULTY. NO S/S OF INFILTRATION NOTED. BED IN LOW POSITION WITH UPPER SIDE RAILS RAISED X2. CALL LIGHT AND PHONE WITHIN REACH. WILL CONTINUE TO MONITOR AND ASSIST PRN.
--- NOTE | 2019-02-10 06:07 | NUR ---
PAIN REASSESSMENT COMPLETED. RESTING WITH EYES CLOSED LAYING ON RIGHT SIDE. RESPIRATIONS REGULAR AND UNLABORED, NO S/S OF DISTRESS NOTED. BED IN LOW POSITION WITH UPPER SIDE RAILS RAISED X2. CALL LIGHT AND PHONE WITHIN REACH. WILL CONTINUE TO MONITOR AND ASSIST PRN.
--- NOTE | 2019-02-10 07:36 | NUR ---
ASSESSMENT DONE. VERBAL RESPONSES APPRO TO QUESTIONS. PETE AT WILL. STATES FEELS FINE. FUNDUS U1/FIRM. NO LOCHIA NOTED ON PAD AND STATES THAT SHE CHANGED IT LAST AT 0500.
--- NOTE | 2019-02-10 07:38 | NUR ---
UP TO BATHROOM TO VOID.
--- NOTE | 2019-02-10 08:30 | NUR ---
AMBULATES IN HALLWAY. NO CO OF DIZZINESS, FEELING FAINT. TOLERATES WELL. NOTED THINISH SMEAR BLOOD ON PAD AFTER AMBULATING.
--- NOTE | 2019-02-10 08:59 | NUR ---
BEEPED DR CORMIER TO REPORT OF LOCHIA LAST PM AND SOAKING PAD. INFORMED OF VS STABLE AND AMBULATING WITHOUT PROBLEMS THIS MORNING- NEW ORDER RECEIVED.
[2019-02-10 09:36] LABS: BASOPHILS 0.1 % (0-2); EOSINOPHILS 2.2 % (0-7); HEMATOCRIT 27.4 % (36.0-48.0); HEMOGLOBIN 8.8 g/dL (12-16); IMMATURE GRANULOCYTES 0.5 % (0-5); LYMPHOCYTES 17.1 % (15-50); MCH 23.8 pg (26.0-34.0); MCHC 32.1 g/dL (31.0-37.0); MCV 74.3 fL (80.0-100.0); MEAN PLATELET VOLUME 9.2 fL (7.4-10.4); MONOCYTES 5.7 % (2-11); NEUTROPHILS 74.4 % (40-80); PLATELET COUNT 211 10x3/uL (130-400); RBC 3.69 10x6/uL (4.00-5.40); RDW 15.6 % (11.5-14.5)
[2019-02-10 09:49] LABS: WBC 11.7 10x3/uL (4.8-10.8)
--- NOTE | 2019-02-10 11:42 | NUR ---
DR CORMIER HERE TO SEE PT- NEW ORDERS RECEIVED.
--- NOTE | 2019-02-10 12:32 | NUR ---
AMBULATORY TO ROOM 1257 FOR ROOM CHANGE DUE TO WS CLOSING UNIT. PT AND FAMILY ORIENTED TO ROOM.
--- NOTE | 2019-02-10 13:03 | NUR ---
resting in bed watching tv. iv saline lock being checked before transfusion started. iv flushed with ns- no co pain or discomfort. no swelling noted. iv ns 250cc bag to pump and infusing at 30cc/hr.
--- NOTE | 2019-02-10 13:34 | NUR ---
unit prbc's donor #[id number] o+ hung and infusing at 75cc/hr to start per pump.
--- NOTE | 2019-02-10 13:46 | NUR ---
requesting pain medication when it is time. states that pain is at incision and rates a 3 on scale of 0-10. no s/s of transfusion reaction.
--- NOTE | 2019-02-10 13:50 | NUR ---
prbc infusion rate increased to 180cc/hr per pump.
--- NOTE | 2019-02-10 14:20 | NUR ---
ASSUMED CARE OF THIS PATIENT SITTING UP IN BED. PRBC INFUSING PER ALARIS PUMP AT 180 ML/HR. FOB AND IN ROOM. DENIES NEEDING ANYTHING AT THIS TIME. IV SITE WITHOUT EVIDENCE OF INFILTRATION, PT SHOWS NO SIGNS OF ADVERSE TRANSFUSION REACTIONS. BREAST AND BOTTLE FEEDING. FOB CURRENTLY FEEDING INFANT. RECENTLY RECEIVED PAIN MEDICATION FOR INCISIONAL PAIN. SIDE RAILS UP X 2, CALL LIGHT IN REACH. TO CALL IF ANYTHING IS NEEDED.
--- NOTE | 2019-02-10 14:55 | NUR ---
CALLED TO ROOM BY FOB. NEEDING CLEAN INFANT LINEN SECONDARY TO VOIDING WHILE DIAPER CHANGED. CLEAN LINEN GIVEN. FOB THEN TO COUCH HOLDING INFANT. BLOOD TRANSFUSION CONTINUES WITHOUT SIGNS OF INFILTRATION. TO CALL IF ANYTHING ELSE IS NEEDED.
--- NOTE | 2019-02-10 15:20 | NUR ---
BLOOD TRANSFUSION COMPLETED. 2-10/23 INCISIONAL BURNING. UP TO BATHROOM TO VOID AND RETURNED TO BED WITHOUT DIFFICULTY. REMINDED FOB NOT TO FALL ASLEEP WITH INFANT IN ARMS. IF HE DESIRES TO SLEEP NEEDS TO PUT IN CRIB. VERBALIZED UNDERSTANDING. SIDERAILS UP X 2, CALL LIGHT IN REACH.
--- NOTE | 2019-02-10 16:10 | NUR ---
BLOOD TRANSFUSION COMPLETED. SALINE LOCK FLUSHED. NO SIGNS OF ADVERSE REACTIONS. UP AD JUDY. FOB IN ROOM, IN HIS ARMS. FRESH WATER GIVEN PER PATIENT REQUEST. NO ADDITIONAL REQUESTS. SIDERAILS UP X 2, CALL LIGHT IN REACH. TO CALL IF ANYTHING IS NEEDED. VERBALIZED UNDERSTANDING.
--- NOTE | 2019-02-10 17:41 | NUR ---
SITTING UP IN BED INFANT. DENIES NEEDING ANYTHING FOR HERSELF. ASKED FOR BOTTLE FOR . NURSERY RN NOTIFIED. TO CALL IF ANYTHING ELSE IS NEEDED. SIDE RAILS UP X 2, CALL LIGHT IN REACH.
--- NOTE | 2019-02-10 19:14 | NUR ---
BEDSIDE REPORT REC'D FROM Paul WILSON RN. PT REC'D IN HIGH FOWLERS POSITION CONVERSING WITH VISITORS AND HER OLDER CHILDREN. INFANT IN VISITORS ARMS. PT A&O X3. DENIES NEEDS AT THIS TIME. REQUEST TO CONTINUE VISITING WITH FAMILY. STATES THAT SHE JUST VOIDED AND HAD NO BLEEDING ON PERIPAD. BED IN LOW POSITION WITH UPPER SIDE RAILS RAISED X2. WILL CONTINUE TO MONITOR AND ASSIST PRN.
--- NOTE | 2019-02-10 19:49 | NUR ---
VISITORS REMAIN AT BEDSIDE. PT CONTINUES TO CONVERSE AND INTERACT WITH VISITORS. DENIES NEEDS. WILL CONT TO MONITOR.
--- NOTE | 2019-02-10 20:31 | NUR ---
CALLS VIA CALL LIGHT, STATES THAT VISITORS AND HER CHILDREN HAVE LEFT. SHIFT ASSESSMENT COMPLETED PER FLOWSHEET. VSS. C/O PAIN 2-3/10, ABD SORENESS AND CRAMPING WITH INCISIONAL BURNING, DENIES NEED FOR PAIN MEDICATION, STATES THAT SHE IS GOING TO SHOWER FOLLOWING ASSESSMENT AND WOULD LIKE TO WAIT FOR PAIN MEDS UNTIL SHE COMPLETES SHOWER. REPORTS THAT SHE FEELS "MUCH BETTER" SINCE RECEIVING PRBCS TODAY. REPORTS THAT SHE IS PASSING FLATUS AND VOIDING WITHOUT DIFFICULTY. FUNDUS FIRM, MIDLINE AND U2 WITH SMALL AMT RUBRA LOCHIA, NO CLOTS NOTED AND PT DENIES PASSING CLOTS WHEN VOIDED. INSTRUCTED TO NOTIFY RN IF SHE NOTES CLOTS IN TOILET, VERBALIZES UNDERSTANDING. INCISION WELL APPROXIMATED WITH ISSAC INTACT, SCANT SEROSANGUINOUS DRAINAGE NOTED ON LEFT SIDE OF LOWER TRANSVERSE ABD INCISION, NO REDNESS, SWELLING, ODOR NOTED. PT DENIES INCREASED IN INCISIONAL PAIN. TRACE BLE EDEMA. REFUSES SCD'S STATES THAT SHE WILL BE UP WALKING IN ROOM AND DE ANDA DURING THE NIGHT. INSTRUCTED ON BREAST CARE WHILE BREAST FEEDING, VERBALIZES UNDERSTANDING AND DENIES QUESTIONS. PLAN OF CARE DISCUSSED WITH PT, VERBALIZES UNDERSTANDING AND AGREEMENT.
--- NOTE | 2019-02-10 20:45 | NUR ---
UP TO SHOWER. TOWELS AND GOWN PROVIDED. LINENS CHANGED. DENIES DIZZINESS, WEAKNESS, SCANT PINK TINGED LOCHIA NOTED TO PERIPAD, NO CLOTS PRESENT. STATES THAT HER GRANDMOTHER AND ARE GOING TO REMAIN IN ROOM WHILE SHE SHOWERS. VERBALIZES USE OF CALL LIGHT IN BATHROOM. WILL CONTINUE TO MONITOR.
--- NOTE | 2019-02-10 21:38 | NUR ---
OUT OF SHOWER. DENIES BLEEDING WHILE IN SHOWER, NO LOCHIA ON PERIPADS. REPORTS THAT SHE PERFORMED ORAL CARE. CURRENTLY INFANT ON LEFT BREAST. C/O PAIN /, ABD CRAMPING AND INCISIONAL BURNING. REQUEST NORCO AND MOTRIN, GIVEN PER ORDER AND REQUEST. STATES THAT PAIN MEDICATIONS WORK BETTER FOR HER WHEN SHE CAN TAKE THEM TOGETHER. RT WRIST PIV FLUSHED WITH 10 MLS NS, NO S/S OF INFILTRATION NOTED, TOLERATED WELL. ICE WATER AND SODA PROVIDED. DENIES ADDITIONAL NEEDS. PT'S GRANDMOTHER REMAINS AT BEDSIDE. BED IN LOW POSITION WITH UPPER SIDE RAILS RAISED X2. CALL LIGHT AND PHONE WITHIN REACH. WILL CONTINUE TO MONITOR AND ASSIST PRN.
--- NOTE | 2019-02-10 22:16 | NUR ---
PAIN REASSESSMENT COMPLETED. PAIN 10/23. REPORTS THAT SHE JUST COMPLETED . INFANT SWADDLED AND PLACED IN OPEN CRIB AT BEDSIDE. DENIES NEEDS. BED IN LOW POSITION WITH UPPER SIDE RAILS RAISED X2. CALL LIGHT AND PHONE WITHIN REACH. WILL CONTINUE TO MONITOR AND ASSIST PRN.
[2019-02-11 00:45] VITALS: BP 101/54
--- NOTE | 2019-02-11 00:45 | NUR ---
PT AWAKE, HOLDING INFANT, VS OBTAINED, RATES INC PAIN 11/23, INFORMED PT THAT I WILL ADM PAIN MED WHEN DUE, PT VERBALIZES UNDERSTANDING, REQUESTED AND SERVED FRESH H20, PT DENIES FURTHER NEEDS AT THIS TIME, PT'S GRANDMOTHER AT BEDSIDE
--- NOTE | 2019-02-11 02:16 | NUR ---
PT AWAKE, INFANT LAYING NEXT TO PT, PT RATES PAIN 2/10, DENIES NEEDS, PT'S GRANDMOTHER ASLEEP ON COUCH
[2019-02-11 03:42] VITALS: BP 84/47
--- NOTE | 2019-02-11 03:42 | NUR ---
PT RESTING WITH EYES CLOSED, AROUSES TO SOFT VERBAL STIMULATION, VS OBTAINED, ADM MOTRIN PER MD ORDERS, SEE EMAR, PT DENIES FURTHER NEEDS, PT'S GRANDMOTHER ASLEEP ON COUCH
--- NOTE | 2019-02-11 04:32 | NUR ---
PAIN REASSESSMENT COMPLETED. RESTING QUIETLY WITH EYES CLOSED LAYING ON RT SIDE. RESPIRATIONS REGULAR AND UNLABORED WITH NO S/S OF DISTRESS NOTED. RESTING IN OPEN CRIB AT BEDSIDE. FAMILY MEMBER RESTING QUIETLY ON COUCH AT BEDSIDE. BED IN LOW POSITION WITH UPPER SIDE RAILS RAISED X2. CALL LIGHT AND PHONE WITHIN REACH. WILL CONTINUE TO MONITOR AND ASSIST PRN.
--- NOTE | 2019-02-11 06:12 | NUR ---
LAYING ON RIGHT SIDE RESTING WITH EYES CLOSED. RESPIRATIONS REGULAR AND UNLABORED, NO S/S OF DISTRESS NOTED. INFANT RESTING QUIETLY IN OPEN CRIB. BED IN LOW POSITION WITH UPPER SIDE RAILS RAISED X2. CALL LIGHT AND PHONE WITHIN REACH. WILL CONTINUE TO MONITOR AND ASSIST PRN.
--- NOTE | 2019-02-11 07:30 | NUR ---
UPON ENTERING ROOM PT IS , SHE RATES HER PAIN AT 4/10 AND REQUEST PAIN MED. QUESTIONS ASKED ABOUT SALINE LOCK REMOVEAL, EXPLAINED THAT WHEN DR CORMIER ROUNDS THIS AM WOULD VERIFY OK TO REMOVE. PT DENIES DIZZINESS OR BEING LIGHT HEADED WHEN WALKING. SHE ALSO DENIES ANY NAUSEA. CALL LIGHT IN REACH WITH SIDE RAILS UP X 2.
--- NOTE | 2019-02-11 08:15 | NUR ---
PT RATES PAIN AT 1/10 AND DENIES NEEDS.
--- NOTE | 2019-02-11 10:26 | NUR ---
SALINE LOCK REMOVED WITH CATH INTACT. MOTRIN GIVEN PER PT REQUEST FOR PAIN/CRAMPING THAT SHE RATES AT 3/10. DENIES ANY NEEDS AT THIS TIME. IN CRIB AT BEDSIDE. SIDE RAILS UP X 2 WITH CALL LIGHT IN REACH.
--- NOTE | 2019-02-11 11:30 | NUR ---
VERBAL AND WRITTEN DISCAHRGE INSTRUCTIONS GONE OVER, PT GIVEN WRITTEN SCRIPT FOR NORCO 10/325MG AND MOTRIN 600MG. SHE STATES UNDERSTANDING TO ALL INFO GIVEN AND DENIES ANY QUESTIONS OR CONCERNS. PT TO CALL WHEN DISCHARGE COMPLETED AND SHE IS READY FOR WHEELCHAIR.
[2019-02-11] MEDS ORDERED: HYDROCODON-ACE1 EA10 PO (11:51)
[2019-02-11] MEDS ORDERED: MOTRIN600 MG PEG (11:51)
--- NOTE | 2019-02-11 13:47 | NUR ---
DC'D VIA WHEELCHAIR TO CAR WITH INFANT. ALL BELONGINGS REMOVED FROM ROOM. MARCELA PADGETT RN NURSERY AND NURSING STUDENTS TOOK PT TO CAR. IN CARE SEAT IN CAR CONFIRMED BY Lilly PADGETT. DOLORES.
--- NOTE | 2019-02-27 12:44 | MORECARE ---
CASE MANAGEMENT DISCHARGE SUMMARY PATIENT: JULIANN ROBERTS UNIT: [id number] ADM DATE: 02/08/19 AGE: 28 : 90 SEX: F ROOM/BED: D.1257 AUTHOR: JASON JI PHYSICIAN: REFERRING PHYSICIAN: PK CORMIER MD DATE OF SERVICE: 02/27/19 Discharge Plan Patient Name: [facility]UL[facility]ANN ROBERTS [facility] [facility] 1990 Planned Disposition: Anticipated Discharge Date: Discharge Date: 02/11/2019 Expected LOS: Initial Reviewer: [email or web address] Initial Review Date: 02/08/2019 Generated: 02/27/19 1:44 pm Patient Name: JULIANN ROBERTS Page [id number] at 1244 All edits/amendments must be made on the electronic document DICTATION DATE: 02/27/19 1243 PROJECT ADMINISTRATIVE ASSISTANT: GILLES 02/27/19 1243 RPT#: [id number] DC DATE:02/11/19 STATUS: DIS IN [facility] [address] [place] [address] END OF REPORT
--- NOTE | 2019-02-27 12:58 | MORECARE ---
CASE MANAGEMENT DISCHARGE SUMMARY PATIENT: JULIANN ROBERTS UNIT: [id number] ADM DATE: 02/08/19 AGE: 28 : 90 SEX: F ROOM/BED: D.1257 AUTHOR: JASON JI PHYSICIAN: REFERRING PHYSICIAN: PK CORMIER MD DATE OF SERVICE: 02/27/19 Discharge Plan Patient Name: JULIANN ROBERTS [facility] : 1990 Planned Disposition: Anticipated Discharge Date: Discharge Date: 02/11/2019 Expected LOS: Initial Reviewer: [email or web address] Initial Review Date: 02/08/2019 Generated: 02/27/19 1:57 pm Last DP export: 02/27/19 11:44 a Patient Name: JULIANN ROBERTS Page [id number] at 1258 All edits/amendments must be made on the electronic document DICTATION DATE: 02/27/19 1257 MARKET RESEARCH COORDINATOR: GILLES 02/27/19 1257 RPT#: [id number] DC DATE:02/11/19 STATUS: DIS IN [facility] [address] [place] [address] END OF REPORT
--- NOTE | 2019-03-09 11:46 | OP ---
PATIENT NAME: JULIANN ROBERTS MEDICAL RECORD: [id number] :89 LOCATION:[id number] ADMISSION DATE:02/08/19 SURGEON: ABDON GANN MD DATE OF OPERATION: 02/08/2019 PREOPERATIVE DIAGNOSES: 1. Repeat section. 2. Term, the patient with contractions. POSTOPERATIVE DIAGNOSES: 1. Repeat section. 2. Term, the patient with contractions. PROCEDURE: A repeat low transverse section and bilateral tubal ligation via modified Uchida procedure. SURGEON: Abdon Gann MD ESTIMATED BLOOD LOSS: 1200 cc. INTRAVENOUS FLUIDS: Per anesthesia record. ANESTHESIA: Regional via spinal. COMPLICATIONS: None apparent. SPECIMENS: Included placenta, cord for gases, and bilateral tubal segments. PROCEDURE IN DETAIL: The patient was taken to the operating room where regional anesthesia was achieved without difficulty. The patient was prepped and draped in normal sterile fashion in the dorsal supine position. A Sherman catheter had been placed and was draining freely. SCDs were on and functioning normally. Following prep and drape and testing of the surgical site for anesthesia, a Pfannenstiel skin incision was made and extended downward through the underlying subcutaneous fat to level of fascia. The fascia was then excised in the midline and extended bilaterally using the Murillo scissors and Bovie cautery. The superior and inferior aspects of the fascial incision were then tented upward from the underlying rectus fascia and sharply dissected from the underlying rectus muscle using the Bovie cautery and Murillo scissors. The rectus muscles were then sharply in the midline using the Metzenbaum scissors. The peritoneum was entered at the superior aspect of the incision using the Metzenbaum scissors. The peritoneum was then excised bilaterally using the Metzenbaum scissors and a bladder flap was created by excising the anterior leaf of the broad ligament across the lower uterine segment. The bladder flap was developed and a bladder blade was placed into the pelvis. A low transverse incision was made and extended superiorly and inferiorly using the Pelosi method. The was delivered vertex atraumatically. It was bulb suctioned upon delivery. The cord was clamped times 2, cut, and the infant was handed to awaiting nursery team. Cord was then obtained for gases and the placenta was removed manually intact, 3-vessel cord was noted. The uterus was then exteriorized, cleared of all clots and debris and vigorously massaged until good uterine tone was noted. The uterine incision was closed using 0 Vicryl in a running locked fashion times 2 as noted. Good hemostasis was noted from the uterine incision. Following repair of the uterine hysterotomy, attention was turned to the bilateral fallopian tubes and was found that the distal end of the OPERATIVE REPORT [id number] JULIANN ROBERTS tubes were adherent to the uterine vasculature. So, decision was made at that time to proceed with a modified Uchida procedure. At this point in the mid portion of the mesosalpinx. A defect was made using the Bovie cautery and 2 curved Allison clamps were placed across the 2 sections of the fallopian tube approximately 1-1/2 inches apart. The intervening tubal segment was then removed and the tubal stumps were then free tied using 2-0 Vicryl ties and then suture ligated using 2-0 Vicryl distal to the initial 2-0 Vicryl suture. This was performed bilaterally with good hemostasis noted. Posterior cul-de-sac was then thoroughly irrigated and the uterus was replaced into the pelvis. Anterior cul-de-sac was thoroughly irrigated and all surgical sites were found to be hemostatic. At this point, counts were correct times 2 for needles, sponges, and instruments. The fascia was then repaired with 0 loop PDS times 1 in a running fashion and the skin was repaired with sean. The patient tolerated the procedure well, transferred to postanesthesia recovery stable without incident. TRANSINT:[id number] Voice Confirmation ID: [id number] DOCUMENT ID: [id number] ABDON GANN MD at 1146 CC: [id number] DICTATION DATE: 02/27/19 1131 SOFTWARE PROJECT MANAGER: 02/27/19 1215 DIS IN 02/11/19 [facility] [address] [place] [id number]
--- NOTE | 2019-04-05 11:41 | DS ---
PATIENT:JULIANN ROBERTS :89 MEDICAL RECORD: [id number] DISCHARGE SUMMARY ADMISSION DATE: 02/08/19 DISCHARGE DATE: 02/11/19 The patient was admitted on 02/08/2019. HISTORY OF PRESENT ILLNESS: A 28-year-old -0-1-3, at 38 weeks and 1 day, admitted for repeat due to painful contractions at 38 weeks. The patient was noted to be O positive, group B strep negative, and rubella immune. The patient was sent from the office with regular painful contractions and cervical change noted from the previous week's exam. PAST MEDICAL HISTORY: The patient's past medical history was significant for marijuana use and anemia. PAST SURGICAL HISTORY: The patient reported a surgical history significant for times 3. ALLERGIES: The patient reported no known allergies. MEDICATIONS: Included vitamins, MiraLax, and Macrobid. FAMILY HISTORY: Significant for a sibling and a parent with diabetes. SOCIAL HISTORY: Positive for being a former tobacco user and a current marijuana user. PHYSICAL EXAMINATION: VITAL SIGNS: On initial assessment, vital signs were stable. The patient was afebrile and normotensive. LUNGS: Clear to auscultation. CARDIOVASCULAR: Regular rate and rhythm. PELVIC: Uterus was appropriately sized and nontender. EXTREMITIES: Lower extremities are free of erythema, swelling, or Homans sign. wellbeing was reassuring with category 1 tracing with a 135 baseline with moderate variability. Contractions noted on the tocometer. ASSESSMENT AND PLAN: 1. Term intrauterine at 38 weeks and 1 day. 2. History of previous section times 3. 3. Contractions/latent labor. 4. Marijuana use. Plan at that time to proceed with repeat section and tubal sterilization. Four units of packed red blood cells were placed on hold and hysterectomy tray was made available as this was #4 with an anterior placentation. Postop report is as dictated and on the chart. The patient had a repeat low transverse section and tubal ligation via the moderate Uchida procedure. The patient did well overnight on postop day #0 with a Dilaudid SURFACE BOSS, Toradol IV, IV fluids, and tolerating clear liquid diet. Sherman catheter was in place and urine output was found to be adequate overnight. SCDs were on and functioning normally. On the morning of postop day #1, the patient was doing well. Vital signs were stable. The patient was afebrile and normotensive. Incision was clean, dry and intact. Uterus was infraumbilical DISCHARGE SUMMARY REPORT [id number] JULIANN ROBERTS and appropriately tender. Lower extremities were free of erythema, swelling or Homans sign. On the morning of postop day #1, the patient was advanced to general diet and p.o. pain meds. Sherman catheter was removed and ambulation was begun. The patient continued to improve and on the morning of postop day #2, the patient reported feeling dizzy while walking. Her hemoglobin was rechecked and found to be 8.8, which was appropriate for blood loss. The patient was given one additional unit of packed red blood cells and monitored overnight on postop day #2. On the morning of postop day #3, the patient reported feeling significantly better. Vital signs were stable. The patient was afebrile and normotensive with a normal heart rate. Uterus remained involuted. The patient reported only minimal lochia. The patient was tolerating meds well for pain and was discharged home. TRANSINT:[id number] Voice Confirmation ID: [id number] DOCUMENT ID: [id number] PK CORMIER MD at 1141 CC: [id number] DICTATION DATE: 04/02/19 1504 RETAIL SOLAR ADVISOR: 04/03/19 0002 DIS IN 02/11/19 [facility] [address] [place] [address]
== END 2019-02-11 13:47 | disposition home or self-care (01) | DRG 785 ==
LOC: D.LDO 09:40 → D.LD 12:33 → D.WS 16:58 → D.LD 02-10 12:14
PROVIDERS: ADMIT Obstetrics & Gynecology; ATTEND Obstetrics & Gynecology
PROC: 0UB70ZZ Excision of Bilateral Fallopian Tubes, Open Approach (ICD-10-PCS; 2019-02-08)
PROC: 10D00Z1 Extraction of Products of Conception, Low, Open Approach (ICD-10-PCS; principal; 2019-02-08 14:10)
DX: O99.324 Drug use complicating childbirth (principal); F12.90 Cannabis use, unspecified, uncomplicated; Z3A.38 38 weeks gestation of pregnancy; Z37.0 Single live birth; O34.211 Maternal care for low transverse scar from previous cesarean delivery; Z30.2 Encounter for sterilization; Z30.09 Encounter for other general counseling and advice on contraception

== ENCOUNTER 2019-06-17 16:39 | Emergency (ER) | payer MEDICAID ==
[~2019-06-17] VITALS: Ht 157.5 cm; Wt 75.0 kg
[~2019-06-17 16:39] MED LIST changes: +HYDROCODON-ACE1 EA10 PO; +MOTRIN600 MG PEG
[2019-06-17 16:50] VITALS: Ht 157.5 cm; Wt 75.0 kg
[2019-06-17] MEDS ORDERED: PENICILLIN V P500 MG PO (17:16)
[2019-06-17] MEDS ORDERED: TYLENOL W/CODEI1 TAB PO (17:16)
[2019-06-17 17:32] VITALS: BP 142/80
== END 2019-06-17 17:33 | disposition home or self-care (01) ==
LOC: D.ER 16:39
DX: K04.7 Periapical abscess without sinus (principal); H92.02 Otalgia, left ear